=== PATIENT | female | born 2000 | race Caucasian/White ===

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

== ENCOUNTER 2018-02-21 02:58 | Emergency (ER) | payer MEDICAID ==
[2018-02-21] MEDS ORDERED: SODIUM CHLORIDE 0.9% 1,000 ML IV STA (03:09)
--- NOTE | 2018-02-21 03:09 | ED ---
General Adult HPI - General Stated complaint: Poss Seizure Time Seen by Provider: 02/21/18 03:08 - History of Present Illness Initial comments: Patient is a 17-year-old female who presents to the emergency department today for evaluation of possible seizure versus syncope. Patient reports she was in her usual state of health throughout the day, this evening she began to feel nauseated walked into her bathroom. She reports she doesn't recall happened after that. Mother reports that she heard the patient fall to the ground, she went in the bathroom check on her and found her laying on her back she dropped her glass of water and was minimally responsive. 911 was called. EMS reports that upon their arrival patient seems somewhat confused she did not have any tongue biting or loss of bowel or bladder continence. She has no history of seizure. EMS did report that initially the thought the patient's eyes were deviating to one direction however that resolved. Patient came around and was awake alert and oriented though she doesn't recall the event. Patient denies any cardiac history and history of syncope in the past she denies any history of seizures. She denies any drug use. - Related Data Home Medications Medication Instructions Recorded Confirmed Ergocalciferol [Vitamin D2] 50,000 unit PO TH 06/20/17 06/20/17 Metoprolol Succinate (ER) [Toprol 25 mg PO DAILY 06/20/17 06/20/17 Xl] Allergies Allergy/AdvReac Type Severity Reaction Status Date / Time No Known Allergies Allergy Verified 06/20/17 19:22 Review of Systems ROS Statement: Those systems with pertinent positive or pertinent negative responses have been documented in the HPI. ROS Other: All systems not noted in ROS Statement are negative. Past Medical History Past Medical History: Hypertension History of Any Multi-Drug Resistant Organisms: None Reported Additional Past Surgical History / Comment(s): eye surgery Past Psychological History: No Psychological Hx Reported Smoking Status: Never smoker Past Alcohol Use History: None Reported Past Drug Use History: None Reported General Exam - General Exam Comments Initial Comments: Physical Exam GENERAL: Patient is well-developed and well-nourished. Patient is nontoxic and well- hydrated and is in no distress. HENT: Normocephalic, Atraumatic. TMs normal bilaterally EYES: PERRL, EOMI PULMONARY: Unlabored respirations. No audible rales rhonchi or wheezing was noted. CARDIOVASCULAR: There is a regular rate and rhythm without any murmurs gallops or rubs. ABDOMEN: Soft and nontender with normal bowel sounds. SKIN: Skin is clear with no lesions or rashes and otherwise unremarkable. : Deferred NEUROLOGIC: Patient is alert and oriented x3. Moving all extremities spontaneously Cranial nerves II through XII grossly intact MUSCULOSKELETAL: Normal extremities with adequate strength and full range of motion. No lower extremity swelling or edema. No calf tenderness. PSYCHIATRIC: Normal psychiatric evaluation. Limitations: no limitations Course Vital Signs 02/21/18 02/21/18 03:39 06:01 Temperature 97 F L 99 F Pulse Rate 66 72 Respiratory 18 20 Rate Blood Pressure 135/87 124/81 O2 Sat by Pulse 100 98 Oximetry EKG Findings - EKG Comments: EKG Findings:: EKG obtained at 3:20 AM, rate is 72 rhythm is sinus with sinus arrhythmia, normal axis, normal intervals, no acute ST elevations or depressions or evidence of acute ischemia or infarction. Medical Decision Making - Medical Decision Making Patient was seen and evaluated upon arrival, patient with an apparent syncopal episode unwitnessed, no history of Labs and imaging were ordered EKG is nonischemic with no arrhythmia Labs were reviewed, lactic acid is negative which is more suggestive of this being syncopal rather than a seizure. D-dimer is elevated, considering that presence of syncope with an elevated d-dimer CT of the chest was ordered Patient is agreeable this CT with no acute findings Patient reevaluated after IV fluids. Patient reports she's feeling much better. CT results were discussed. I advised the patient I suspect she had a syncopal episode likely related to orthostatic hypotension return parameters were discussed, all questions pertaining to care were answered I advised the patient that if she has any chest pain or shortness of breath with exertion or develops any new or concerning symptoms or recurrent syncopal she should return to the ER for reevaluation otherwise follow up with her primary care physician. Patient is agreeable with this plan. All questions pertaining care were answered return parameters were discussed patient was discharged home in stable condition. - Lab Data Result diagrams: 02/21/18 03:33 02/21/18 03:33 Lab Results 02/21/18 02/21/18 02/21/18 Range/Units 03:33 03:33 03:33 WBC 7.9 (4.0-11.0) k/uL RBC 4.74 (3.80-5.40) m/uL Hgb 13.8 (11.4-16.0) gm/dL Hct 40.9 (34.0-46.0) % MCV 86.4 (80.0-100.0) fL MCH 29.2 (25.0-35.0) pg MCHC 33.7 (31.0-37.0) g/dL RDW 11.7 (11.5-15.5) % Plt Count 286 (150-450) k/uL Neutrophils % 63 % Lymphocytes % 27 % Monocytes % 6 % Eosinophils % 2 % Basophils % 1 % Neutrophils # 5.0 (1.3-7.7) k/uL Lymphocytes # 2.1 (1.0-4.8) k/uL Monocytes # 0.4 (0-1.0) k/uL Eosinophils # 0.2 (0-0.7) k/uL Basophils # 0.0 (0-0.2) k/uL D-Dimer (<0.60) mg/L FEU Sodium 140 (137-145) mmol/L Potassium 3.6 (3.5-5.1) mmol/L Chloride 106 (98-107) mmol/L Carbon Dioxide 24 (22-30) mmol/L Anion Gap 10 mmol/L BUN 13 (7-17) mg/dL Creatinine 0.67 (0.52-1.04) mg/dL Est GFR (CKD-EPI)AfAm >90 (>60 ml/min/1.73 sqM) Est GFR (CKD-EPI)NonAf >90 (>60 ml/min/1.73 sqM) Glucose 103 H (74-99) mg/dL POC Glucose (mg/dL) (75-99) mg/dL POC Glu Machining And Assembly Supervisor ID Plasma Lactic Acid Werner 1.0 (0.7-2.0) mmol/L Calcium 9.2 (8.4-10.2) mg/dL Total Bilirubin 0.3 (0.2-1.3) mg/dL AST 15 (14-36) U/L ALT 36 (9-52) U/L Alkaline Phosphatase 57 (38-126) U/L Total Protein 7.0 (6.3-8.2) g/dL Albumin 4.2 (3.5-5.0) g/dL Urine Color Urine Appearance (Clear) Urine pH (5.0-8.0) Ur Specific [place] (1.001-1.035) Urine Protein (Negative) Urine Glucose (UA) (Negative) Urine Ketones (Negative) Urine Blood (Negative) Urine Nitrite (Negative) Urine Bilirubin (Negative) Urine Urobilinogen (<2.0) mg/dL Ur Leukocyte Esterase (Negative) Urine RBC (0-5) /hpf Urine WBC (0-5) /hpf Ur Squamous Epith Cells (0-4) /hpf Amorphous Sediment (None) /hpf Urine Mucus (None) /hpf Urine Opiates Screen (NotDetected) Ur Oxycodone Screen (NotDetected) Urine Methadone Screen (NotDetected) Ur Propoxyphene Screen (NotDetected) Ur Barbiturates Screen (NotDetected) U Tricyclic Antidepress (NotDetected) Ur Phencyclidine Scrn (NotDetected) Ur Amphetamines Screen (NotDetected) U Methamphetamines Scrn (NotDetected) U Benzodiazepines Scrn (NotDetected) Urine Cocaine Screen (NotDetected) U Marijuana (THC) Screen (NotDetected) Serum Alcohol <10 mg/dL 02/21/18 02/21/18 02/21/18 Range/Units 03:33 03:44 04:20 WBC (4.0-11.0) k/uL RBC (3.80-5.40) m/uL Hgb (11.4-16.0) gm/dL Hct (34.0-46.0) % MCV (80.0-100.0) fL MCH (25.0-35.0) pg MCHC (31.0-37.0) g/dL RDW (11.5-15.5) % Plt Count (150-450) k/uL Neutrophils % % Lymphocytes % % Monocytes % % Eosinophils % % Basophils % % Neutrophils # (1.3-7.7) k/uL Lymphocytes # (1.0-4.8) k/uL Monocytes # (0-1.0) k/uL Eosinophils # (0-0.7) k/uL Basophils # (0-0.2) k/uL D-Dimer 0.71 H (<0.60) mg/L FEU Sodium (137-145) mmol/L Potassium (3.5-5.1) mmol/L Chloride (98-107) mmol/L Carbon Dioxide (22-30) mmol/L Anion Gap mmol/L BUN (7-17) mg/dL Creatinine (0.52-1.04) mg/dL Est GFR (CKD-EPI)AfAm (>60 ml/min/1.73 sqM) Est GFR (CKD-EPI)NonAf (>60 ml/min/1.73 sqM) Glucose (74-99) mg/dL POC Glucose (mg/dL) 98 (75-99) mg/dL POC Glu Machining And Assembly Supervisor ID Sebastián Robles Plasma Lactic Acid Werner (0.7-2.0) mmol/L Calcium (8.4-10.2) mg/dL Total Bilirubin (0.2-1.3) mg/dL AST (14-36) U/L ALT (9-52) U/L Alkaline Phosphatase (38-126) U/L Total Protein (6.3-8.2) g/dL Albumin (3.5-5.0) g/dL Urine Color Light Yellow Urine Appearance Clear (Clear) Urine pH 7.0 (5.0-8.0) Ur Specific [place] 1.009 (1.001-1.035) Urine Protein Negative (Negative) Urine Glucose (UA) Negative (Negative) Urine Ketones Negative (Negative) Urine Blood Negative (Negative) Urine Nitrite Negative (Negative) Urine Bilirubin Negative (Negative) Urine Urobilinogen <2.0 (<2.0) mg/dL Ur Leukocyte Esterase Trace H (Negative) Urine RBC 1 (0-5) /hpf Urine WBC 1 (0-5) /hpf Ur Squamous Epith Cells 1 (0-4) /hpf Amorphous Sediment Rare H (None) /hpf Urine Mucus Occasional H (None) /hpf Urine Opiates Screen Not Detected (NotDetected) Ur Oxycodone Screen Not Detected (NotDetected) Urine Methadone Screen Not Detected (NotDetected) Ur Propoxyphene Screen Not Detected (NotDetected) Ur Barbiturates Screen Not Detected (NotDetected) U Tricyclic Antidepress Not Detected (NotDetected) Ur Phencyclidine Scrn Not Detected (NotDetected) Ur Amphetamines Screen Not Detected (NotDetected) U Methamphetamines Scrn Not Detected (NotDetected) U Benzodiazepines Scrn Not Detected (NotDetected) Urine Cocaine Screen Not Detected (NotDetected) U Marijuana (THC) Screen Not Detected (NotDetected) Serum Alcohol mg/dL Disposition Clinical Impression: Syncope Disposition: HOME SELF-CARE Condition: Good Instructions: Syncope (DC) Is patient prescribed a controlled substance at d/c from ED?: No Referrals: Ely Sheridan MD [Primary Care Provider] - 1-2 days
[2018-02-21 03:44] LABS: Basophils % (A) 1 %; Eosinophils # (A) 0.2 k/uL (0-0.7); Eosinophils % (A) 2 %; HCT 40.9 % (34.0-46.0); HGB 13.8 gm/dL (11.4-16.0); Lymphocytes # (A) 2.1 k/uL (1.0-4.8); Lymphocytes % (A) 27 %; MCH 29.2 pg (25.0-35.0); MCHC 33.7 g/dL (31.0-37.0); MCV 86.4 fL (80.0-100.0); Mean Platelet Volume 7.4; Monocytes # (A) 0.4 k/uL (0-1.0); Monocytes % (A) 6 %; Neutrophils % (A) 63 %; Platelet Count 286 k/uL (150-450); RBC 4.74 m/uL (3.80-5.40); RDW 11.7 % (11.5-15.5); WBC 7.9 k/uL (4.0-11.0)
[2018-02-21 03:56] LABS: Glucose,Whole Blood 98 mg/dL (75-99)
[2018-02-21 03:57] LABS: ALT 36 U/L (9-52); AST 15 U/L (14-36); Albumin 4.2 g/dL (3.5-5.0); Alcohol <10 mg/dL; Alkaline Phosphatase 57 U/L (38-126); Anion Gap 10 mmol/L; Blood Urea Nitrogen 13 mg/dL (7-17); Calcium 9.2 mg/dL (8.4-10.2); Carbon Dioxide 24 mmol/L (22-30); Chloride 106 mmol/L (98-107); Glucose 103 mg/dL (74-99); Potassium 3.6 mmol/L (3.5-5.1); Sodium 140 mmol/L (137-145); Total Bilirubin 0.3 mg/dL (0.2-1.3)
--- NOTE | 2018-02-21 04:05 | CT ---
EXAMINATION TYPE: CT brain wo con DATE OF EXAM: 02/21/2018 COMPARISON: Possible seizure HISTORY: possible seizure CT DLP: 1099.4 mGycm. Automated Exposure Control for Dose Reduction was Utilized. TECHNIQUE: CT scan of the head is performed without contrast. FINDINGS: Ventricles of normal size. There is no mass effect nor midline shift. There is no sign of i ntracranial hemorrhage. There is no evidence of cerebral edema. Calvarium appears intact. IMPRESSION: Negative CT scan of the brain.
[2018-02-21 04:39] LABS: Amorphous Sediment,Urine Rare /hpf; Appearance,Urine Clear (Clear); Bilirubin,Urine Negative (Negative); Blood,Urine Negative (Negative); Color,Urine Light Yellow; Glucose,Urine (UA) Negative (Negative); Ketones,Urine Negative (Negative); Leukocyte Esterase,Urine Trace (Negative); Mucus,Urine Occasional /hpf; Nitrite,Urine Negative (Negative); Protein,Urine Negative (Negative); RBC,Urine 1 /hpf (0-5); Specific Gravity,Urine 1.009 (1.001-1.035); Squamous Epithelial Cell,Urine 1 /hpf (0-4); Urobilinogen,Urine <2.0 mg/dL (<2.0); WBC,Urine 1 /hpf (0-5)
[2018-02-21 04:44] LABS: Amphetamine Screen,Urine Not Detected (NotDetected); Barbiturate Screen,Urine Not Detected (NotDetected); Benzodiazepines Screen,Urine Not Detected (NotDetected); Cocaine Screen,Urine Not Detected (NotDetected); Methadone Screen, Urine Not Detected (NotDetected); Opiate Screen,Urine Not Detected (NotDetected); Oxycodone Screen, Urine Not Detected (NotDetected); Phencyclidine Screen,Urine Not Detected (NotDetected); Tricyclic Antidepressant,Urine Not Detected (NotDetected); Urn Cannabinoid Scrn Not Detected (NotDetected)
--- NOTE | 2018-02-21 04:57 | CT ---
EXAMINATION TYPE: CT chest angio for PE DATE OF EXAM: 02/21/2018 COMPARISON: None HISTORY: elevated d-dimer CT DLP: 295.9 mGycm Automated exposure control for dose reduction was used. CONTRAST: CT Chest for pulmonary embolism performed with with IV Contrast, patient injected with 60mL mL of Iso dyllan 370. There are 3-D post processed images. FINDINGS: There is normal contrast opacification of the pulmonary arteries. There are no filling defects. There is no mediastinal adenopathy. Thoracic aorta appears normal. There is no evidence of aneurysm o r dissection. There are no hilar masses. Heart size is normal. There is no pericardial effusion. There is no pleural effusion. Upper abdominal soft tissues are unremarkable. The bony thorax is intact. The ribs appear intact. The lungs are clear of infiltrate. There is no kunal dence of a pulmonary mass. IMPRESSION: Negative CT scan of the chest. No evidence of pulmonary embolism.
[2018-02-21 06:02] VITALS: BP 124/81; PULSE 72; RESP 20; TEMP 99
== END 2018-02-21 06:02 | disposition home or self-care (01) ==
LOC: EC 02:58
DX: R55 Syncope and collapse (principal); I10 Essential (primary) hypertension; Z79.899 Other long term (current) drug therapy
CPT/HCPCS: 36415; 93005; 85379; 80053; 83605; 85025; 81001; 80306; 80320; 70450; 71275; 99285; 96360; 96361; Q9967

== ENCOUNTER 2018-04-22 19:12 | Observation (INO) | payer MEDICAID ==
[2018-04-22 19:47] LABS: Glucose,Whole Blood 108 mg/dL (75-99)
[2018-04-22 19:55] LABS: Appearance,Urine Clear (Clear); Bilirubin,Urine Negative (Negative); Blood,Urine Negative (Negative); Color,Urine Colorless; Glucose,Urine (UA) Negative (Negative); Ketones,Urine Negative (Negative); Leukocyte Esterase,Urine Negative (Negative); Nitrite,Urine Negative (Negative); PH, Urine 6.5 (5.0-8.0); Protein,Urine Negative (Negative); Specific Gravity,Urine 1.001 (1.001-1.035); Urobilinogen,Urine <2.0 mg/dL (<2.0)
--- NOTE | 2018-04-22 20:03 | ED ---
General Adult HPI - General Chief complaint: Syncope Stated complaint: Syncope Time Seen by Provider: 04/22/18 19:45 Source: family Mode of arrival: ambulatory Limitations: no limitations - History of Present Illness Initial comments: Dictation was produced using [employer] dictation software. please excuse any grammatical, word or spelling errors. Chief Complaint: 17-year-old female presents with 2 episodes of syncope. History of Present Illness: Patient is 17-year-old female presents with 2 episodes of syncope. Patient had similar episode back in January where she was evaluated discharge. Patient has known episodes of syncope by primary care physician. Patient does not have any history of seizures. Patient had episode of syncope where she was found to be on the ground and bathroom. She was brought to the emergency Department were while in triage she had another episode. She is allegedly unconscious for about 5 minutes and immediately after returns to normal mentation. Patient states that she does feel the onset of her syncope sometimes prior to passing out. His feels well. Patient not sexually active. She does not believe she is . Patient denies any heavy menstrual bleeding. The ROS documented in this emergency department record has been reviewed and confirmed by me. Those systems with pertinent positive or negative responses have been documented in the HPI. All other systems are other negative and/or noncontributory. PHYSICAL EXAM: General Impression: Alert and oriented x3, not in acute distress HEENT: Normocephalic atraumatic, extra-ocular movements intact, pupils equal and reactive to light bilaterally, mucous membranes moist, no lateral tongue avulsions Cardiovascular: Heart regular rate and rhythm, S1&S2 audible, no murmurs, rubs or gallops Chest: Lungs clear to auscultation bilaterally, no rhonchi, no wheeze, no rales Abdomen: Bowel sounds present, abdomen soft, non-tender, non-distended, no organomegaly Musculoskeletal: Pulses present and equal in all extremities, no peripheral edema Motor: Power 5/5 bilaterally, no focal deficits noted Neurological: CN II-XII grossly intact, no focal motor or sensory deficits noted Skin: Intact with no visualized rashes Psych: Normal affect and mood ED course: 17 yo female presents with syncope. Patient clinical presentation not consistent with generalized seizure. Vital signs upon arrival are within acceptable limits. Patient is mentating appropriately upon initial examination. Patient had multiple syncopal episodes today. Clinical presentation concerning for acute dysrhythmia versus vasovagal syncope given the patient multiple episodes today.Laboratory evaluation obtained. CBC, metabolic panel is unremarkable. Urinalysis is negative. Patient still continues to feel ill. At this point I feel patient would benefit from admission to observation for cardiac monitoring, echocardiogram and cardiology consultation. Patient stable medical condition at this time. Serial EKGs were obtained showing no acute processes. EKG interpretation: Ventricular rate 87, normal sinus rhythm, FL interval 186, QS 80, QTc 442. No FL prolongation, no QTC prolongation, no ST or T-wave changes noted. Overall, this EKG is unremarkable - Related Data Home Medications Medication Instructions Recorded Confirmed Metoprolol Succinate (ER) [Toprol 25 mg PO DAILY 06/20/17 04/22/18 Xl] Nor-Babar 1 tab PO DAILY 04/22/18 04/22/18 Vitamin C/Biotin [Hair, Skin and 1 tab PO DAILY 04/22/18 04/22/18 Nails] Allergies Allergy/AdvReac Type Severity Reaction Status Date / Time No Known Allergies Allergy Verified 04/22/18 19:57 Review of Systems ROS Statement: Those systems with pertinent positive or pertinent negative responses have been documented in the HPI. ROS Other: All systems not noted in ROS Statement are negative. Past Medical History Past Medical History: Hypertension, Syncope History of Any Multi-Drug Resistant Organisms: None Reported Additional Past Surgical History / Comment(s): eye surgery Past Psychological History: No Psychological Hx Reported Smoking Status: Never smoker Past Alcohol Use History: None Reported Past Drug Use History: None Reported General Exam Limitations: no limitations Course Vital Signs 04/22/18 04/22/18 04/22/18 19:33 19:37 20:00 Temperature 98.7 F Pulse Rate 74 72 72 Respiratory 16 17 12 Rate Blood Pressure 123/68 123/68 130/84 O2 Sat by Pulse 97 98 98 Oximetry 04/22/18 20:30 Temperature Pulse Rate 67 Respiratory 15 Rate Blood Pressure 129/79 O2 Sat by Pulse 98 Oximetry Medical Decision Making - Lab Data Result diagrams: 04/22/18 19:35 04/22/18 19:35 Lab Results 04/22/18 04/22/18 04/22/18 Range/Units 19:35 19:35 19:35 WBC 10.1 (4.0-11.0) k/uL RBC 4.83 (3.80-5.40) m/uL Hgb 13.7 (11.4-16.0) gm/dL Hct 41.7 (34.0-46.0) % MCV 86.3 (80.0-100.0) fL MCH 28.4 (25.0-35.0) pg MCHC 32.9 (31.0-37.0) g/dL RDW 12.0 (11.5-15.5) % Plt Count 327 (150-450) k/uL Neutrophils % 64 % Lymphocytes % 28 % Monocytes % 5 % Eosinophils % 2 % Basophils % 0 % Neutrophils # 6.5 (1.3-7.7) k/uL Lymphocytes # 2.8 (1.0-4.8) k/uL Monocytes # 0.5 (0-1.0) k/uL Eosinophils # 0.2 (0-0.7) k/uL Basophils # 0.0 (0-0.2) k/uL Sodium 141 (137-145) mmol/L Potassium 4.0 (3.5-5.1) mmol/L Chloride 105 (98-107) mmol/L Carbon Dioxide 24 (22-30) mmol/L Anion Gap 12 mmol/L BUN 12 (7-17) mg/dL Creatinine 0.65 (0.52-1.04) mg/dL Est GFR (CKD-EPI)AfAm >90 (>60 ml/min/1.73 sqM) Est GFR (CKD-EPI)NonAf >90 (>60 ml/min/1.73 sqM) Glucose 110 H (74-99) mg/dL POC Glucose (mg/dL) 108 H (75-99) mg/dL POC Glu Computer Systems Technician ID Mayra Cárdenas Calcium 10.4 H (8.4-10.2) mg/dL Magnesium 2.0 (1.6-2.3) mg/dL Urine Color Urine Appearance (Clear) Urine pH (5.0-8.0) Ur Specific [place] (1.001-1.035) Urine Protein (Negative) Urine Glucose (UA) (Negative) Urine Ketones (Negative) Urine Blood (Negative) Urine Nitrite (Negative) Urine Bilirubin (Negative) Urine Urobilinogen (<2.0) mg/dL Ur Leukocyte Esterase (Negative) Urine HCG, Qual (Not Detectd) 04/22/18 04/22/18 Range/Units 19:40 19:40 WBC (4.0-11.0) k/uL RBC (3.80-5.40) m/uL Hgb (11.4-16.0) gm/dL Hct (34.0-46.0) % MCV (80.0-100.0) fL MCH (25.0-35.0) pg MCHC (31.0-37.0) g/dL RDW (11.5-15.5) % Plt Count (150-450) k/uL Neutrophils % % Lymphocytes % % Monocytes % % Eosinophils % % Basophils % % Neutrophils # (1.3-7.7) k/uL Lymphocytes # (1.0-4.8) k/uL Monocytes # (0-1.0) k/uL Eosinophils # (0-0.7) k/uL Basophils # (0-0.2) k/uL Sodium (137-145) mmol/L Potassium (3.5-5.1) mmol/L Chloride (98-107) mmol/L Carbon Dioxide (22-30) mmol/L Anion Gap mmol/L BUN (7-17) mg/dL Creatinine (0.52-1.04) mg/dL Est GFR (CKD-EPI)AfAm (>60 ml/min/1.73 sqM) Est GFR (CKD-EPI)NonAf (>60 ml/min/1.73 sqM) Glucose (74-99) mg/dL POC Glucose (mg/dL) (75-99) mg/dL POC Glu Computer Systems Technician ID Calcium (8.4-10.2) mg/dL Magnesium (1.6-2.3) mg/dL Urine Color Colorless Urine Appearance Clear (Clear) Urine pH 6.5 (5.0-8.0) Ur Specific [place] 1.001 (1.001-1.035) Urine Protein Negative (Negative) Urine Glucose (UA) Negative (Negative) Urine Ketones Negative (Negative) Urine Blood Negative (Negative) Urine Nitrite Negative (Negative) Urine Bilirubin Negative (Negative) Urine Urobilinogen <2.0 (<2.0) mg/dL Ur Leukocyte Esterase Negative (Negative) Urine HCG, Qual Not Detected (Not Detectd) Disposition Clinical Impression: Syncope Disposition: ADMITTED IP TO THIS [facility] Condition: Good Referrals: Ely Sheridan MD [Primary Care Provider] - 1-2 days Decision Time: 21:09
--- NOTE | 2018-04-22 20:41 | XR ---
EXAMINATION TYPE: XR chest 2V DATE OF EXAM: 04/22/2018 COMPARISON: Chest x-ray June 20, 2017. CTA chest February 21, 2018. HISTORY: Chest pain. History of hypertension. TECHNIQUE: Frontal and lateral views of the chest are obtained. FINDINGS: There is no focal air space opacity, pleural effusion, or pneumothorax seen. The cardiac silhouette size is within normal limits. The osseous structures are intact. IMPRESSION: No acute cardiopulmonary process. No significant change from prior studies.
[2018-04-22 20:44] LABS: Basophils % (A) 0 %; Eosinophils # (A) 0.2 k/uL (0-0.7); Eosinophils % (A) 2 %; HCT 41.7 % (34.0-46.0); HGB 13.7 gm/dL (11.4-16.0); Lymphocytes # (A) 2.8 k/uL (1.0-4.8); Lymphocytes % (A) 28 %; MCH 28.4 pg (25.0-35.0); MCHC 32.9 g/dL (31.0-37.0); MCV 86.3 fL (80.0-100.0); Mean Platelet Volume 7.9; Monocytes # (A) 0.5 k/uL (0-1.0); Monocytes % (A) 5 %; Neutrophils # (A) 6.5 k/uL (1.3-7.7); Neutrophils % (A) 64 %; Platelet Count 327 k/uL (150-450); RBC 4.83 m/uL (3.80-5.40); WBC 10.1 k/uL (4.0-11.0)
[2018-04-22 20:54] LABS: Anion Gap 12 mmol/L; Blood Urea Nitrogen 12 mg/dL (7-17); Calcium 10.4 mg/dL (8.4-10.2); Carbon Dioxide 24 mmol/L (22-30); Chloride 105 mmol/L (98-107); Glucose 110 mg/dL (74-99); Sodium 141 mmol/L (137-145)
[2018-04-22] MEDS ORDERED: NALOXONE 0.4 MG/ML 1 ML VIAL IV PRN (21:05)
[2018-04-22] MEDS: SODIUM CHLORIDE 0.9% 1,000 ML IV SCH ×2 (21:38→23:50)
[2018-04-22 22:51] VITALS: BMI 25.9
--- NOTE | 2018-04-22 23:02 | P.HPIM ---
History of Present Illness H&P Date: 04/22/18 Chief Complaint: syncope 17 year old female with history of hypertension of 1 year, no workup done to r/ o secondary causes of hypertension , currently on metoprolol for over 1 year now. she has started OCP 4 months ago, her first episode of Syncope happened 1 month later, otherwise she is tolerating the pill . patient presented today , due to feeling ill and sick, she cant describe what exactly she felt, but she felt as if she will pass out like last time in early february when she passed out in the bathroom and her mom heard a thud, and she was unresponsive for which EMS brought her to the hospital , she was checked in the ED, and discharged in stable condition. She later followed up with her PCP. so today, she presented as she was worried the syncope will happen again, she had no other episodes since February. then later while in Triage, she passed out , mother and nursing staff noticed no seizure like activity, there is no bladder or bowel incontinence, no tongue biting no frothing from the mouth. patient was cold and clammy, her extremities turned purple and she was unresponsive for possibly 5 minutes then she regained consciousness on her own with no post ictal confusion and feeling completely normal within short time. patient cant describe what happens to her, and does not remember anything. otherwise, she denies any fever, chills, headache, nausea or vomiting, no abd pain, no changes in bowel habits, no rash, no injuries. she denies any changes in her daily routines, PO intake, or activity level. she does not have any idea why she is having such events. she denies any family history of sudden cardiac , except in great grandfather who dies in old age from cardiac condition. she was diagnosed with HYpertension over 1 year ago, no workup done that she can recall, and was started on metoprolol. her thyroid function has been checked with her PCP and reports to be normal. she had heart echo when she was younger due to heart murmur , but they recall that everything turned to be normal. currently she is pleasantly laying comfortable in bed, with her mom at bedside. she denies any heavy menestruation , denies taking any herbs or natural products , except for nail/hair vitamines. initial workp in the ED , unremarkable. she had a CTA of the chest back in february which turned out to be unremarkable . Brain CT was negative for any acute abnormalities (from February 2018). Review of Systems Pertinent positives as noted in HPI. All other systems were reviewed and are negative Past Medical History Past Medical History: Hypertension, Syncope History of Any Multi-Drug Resistant Organisms: None Reported Additional Past Surgical History / Comment(s): eye surgery Past Psychological History: No Psychological Hx Reported Smoking Status: Never smoker Past Alcohol Use History: None Reported Past Drug Use History: None Reported Medications and Allergies Home Medications Medication Instructions Recorded Confirmed Type Metoprolol Succinate (ER) [Toprol 25 mg PO DAILY 06/20/17 04/22/18 History Xl] Nor-Babar 1 tab PO DAILY 04/22/18 04/22/18 History Vitamin C/Biotin [Hair, Skin and 1 tab PO DAILY 04/22/18 04/22/18 History Nails] Allergies Allergy/AdvReac Type Severity Reaction Status Date / Time No Known Allergies Allergy Verified 04/22/18 19:57 Physical Exam Vitals: Vital Signs Temp Pulse Resp BP Pulse Ox 04/22/18 20:30 67 15 129/79 98 04/22/18 20:00 72 12 130/84 98 04/22/18 19:37 72 17 123/68 98 04/22/18 19:33 98.7 F 74 16 123/68 97 Intake and Output 04/22/18 04/22/18 04/22/18 06:59 14:59 22:59 Other: Weight 72.575 kg Constitutional: No acute distress, conversant, pleasant Eyes: Anicteric sclerae, moist conjunctiva, no lid-lag Pupils equal round reactive to light ENMT: NC/AT Oropharynx clear, no erythema, exudates Neck: Supple, FROM, no masses, or JVD No carotid bruits No thyromegaly Lungs: Clear to auscultation Clear to percussion Normal respiratory effort, no accessory muscle use Cardiovascular: Heart regular in rate and rhythm, Systolic murmur at P2 disappears with deep breathing , no gallops, or rubs No peripheral edema Abdominal: Soft Nontender, no guarding, rebound or rigidity Abdomen moving with respiration Normoactive bowel sounds No hepatomegaly, No splenomegaly No palpable mass No abdominal wall hernia noted Skin: Normal temperature, tone, texture, turgor No induration No subcutaneous nodules No rash, lesions No ulcers Extremities: No digital cyanosis No clubbing Pedal pulses intact and symmetrical Radial pulses intact and symmetrical No calf tenderness Psychiatric: Alert and oriented to person, place and time Appropriate affect fair judgment Neuro Muscles Strength 5/5 in all 4 extremities Sensation to light touch grossly present throughout Cranial nerves II-XII grossly intact No focal sensory deficits Lymphatics: no palpable cervical or supraclavicular , or inguinal lymph nodes Results CBC & Chem 7: 04/22/18 19:35 04/22/18 19:35 Labs: Abnormal Lab Results - Last 24 Hours (Table) 04/22/18 04/22/18 Range/Units 19:35 19:35 Glucose 110 H (74-99) mg/dL POC Glucose (mg/dL) 108 H (75-99) mg/dL Calcium 10.4 H (8.4-10.2) mg/dL Assessment and Plan Assessment: 17-year-old female with history of hypertension on metoprolol admitted under observation with anticipated length of stay less than 48 hours due to syncopal episode that was witnessed in the ED no seizure-like activity. Patient admitted for further workup and evaluation by cardiology. Patient probably would benefit from echocardiogram and EEG, will monitor cardiac enzymes. Recheck electrolytes in morning. If nothing shows up patient will probably benefit from outpatient cardiology follow-up and evaluation with some cardiac event monitor. I also suggested patient consider workup for secondary causes of hypertension as she was diagnosed younger than age of 28. I also advised the patient to avoid driving until a final diagnosis and plan as reached and to consider carpooling or getting rides to her destinations to avoid catastrophic accidents that can result from passing out behind the wheel Plan: syncope and colllapse hypertension, on metoprolol heart murmur fall precautions cardiac monitoring , follow up cardiac enzymes cardiology consultation check ECHO, check EEG follow up morning labs Mild hypercalcemia recheck in AM continue with gentle hydration DVT PPX, heparin sc tid Preformed a thorough record review from recent hospitalization in the ED back in february 2018, with similar episode of syncpe, CT brain and CTA chest both unremarkable Surrogate decision-maker: patient mother CODE STATUS:full code Discussed with: Patient, ER, RN Anticipated discharge: <[address]: home A total of 60 minutes was spent on the care of this complex patient more than 50 % of the time was spent in counseling and care coordination.
[2018-04-22 23:15] LABS: Creatine Kinase 109 U/L (30-135)
[2018-04-22 23:29] LABS: Creatine Kinase MB 0.8 ng/mL (0.0-2.4); Troponin I <0.012 ng/mL (0.000-0.034)
[2018-04-22] MEDS: HEPARIN SODIUM,PORCINE 5,000 UNIT/ML 1 ML VIAL SQ SCH (23:49)
[2018-04-23 04:10] LABS: Creatine Kinase 76 U/L (30-135)
[2018-04-23 04:23] LABS: Creatine Kinase MB <0.2 ng/mL (0.0-2.4); Troponin I <0.012 ng/mL (0.000-0.034)
[2018-04-23 08:00] LABS: Basophils % (A) 0 %; Eosinophils # (A) 0.1 k/uL (0-0.7); Eosinophils % (A) 1 %; HCT 38.1 % (34.0-46.0); HGB 12.6 gm/dL (11.4-16.0); Lymphocytes # (A) 1.5 k/uL (1.0-4.8); Lymphocytes % (A) 18 %; MCH 28.9 pg (25.0-35.0); MCHC 32.9 g/dL (31.0-37.0); MCV 87.7 fL (80.0-100.0); Mean Platelet Volume 7.5; Monocytes # (A) 0.4 k/uL (0-1.0); Monocytes % (A) 4 %; Neutrophils # (A) 6.4 k/uL (1.3-7.7); Neutrophils % (A) 76 %; Platelet Count 247 k/uL (150-450); RBC 4.35 m/uL (3.80-5.40); RDW 12.1 % (11.5-15.5); WBC 8.5 k/uL (4.0-11.0)
[2018-04-23 08:14] LABS: ALT 32 U/L (9-52); AST 18 U/L (14-36); Albumin 4.2 g/dL (3.5-5.0); Alkaline Phosphatase 45 U/L (38-126); Anion Gap 9 mmol/L; Blood Urea Nitrogen 11 mg/dL (7-17); Calcium 9.7 mg/dL (8.4-10.2); Carbon Dioxide 25 mmol/L (22-30); Chloride 108 mmol/L (98-107); Glucose 93 mg/dL (74-99); Magnesium 1.9 mg/dL (1.6-2.3); Potassium 4.6 mmol/L (3.5-5.1); Sodium 142 mmol/L (137-145); Total Bilirubin 0.4 mg/dL (0.2-1.3); Total Protein 6.9 g/dL (6.3-8.2)
[2018-04-23 08:25] LABS: Creatine Kinase 67 U/L (30-135)
[2018-04-23 08:38] LABS: Creatine Kinase MB <0.2 ng/mL (0.0-2.4); Troponin I <0.012 ng/mL (0.000-0.034)
[2018-04-23] MEDS: HEPARIN SODIUM,PORCINE 5,000 UNIT/ML 1 ML VIAL SQ SCH (08:41)
--- NOTE | 2018-04-23 08:50 | CONS ---
CONSULTATION Ms. Reyes is a 17-year-old female with no prior documented history of cardiac disease who presented with syncopal episode. Yesterday while at home, she felt warm, dizzy and nauseated. She came into the emergency room and in the emergency room she had an episode of syncope, although no documentation of tachycardia or bradycardia were made. She came to. She was aware of her surroundings. She had no tonic clonic seizure. No loss of bladder control. She had no other symptoms. She had similar syncopal episode that occurred in February, but at that time she was in bed and got out to go to the bathroom and she had syncope. In between, she had no episodes. She is reasonably active physically. Denies any symptoms of palpitation. She denies any dizziness on a regular basis. She has no chest pain. No significant dyspnea on exertion. No PND, orthopnea, or peripheral edema. She was diagnosed with hypertension about a year ago and has been started on metoprolol tartrate 25 mg daily. REVIEW OF SYSTEMS: RESPIRATORY SYSTEM: No recent cough. No wheezing. No history of obstructive lung disease. GI SYSTEM: No recent GI bleed. No peptic ulcer disease. SYSTEM: No dysuria or hematuria. NERVOUS SYSTEM: No stroke or seizure. PHYSICAL EXAMINATION: A 17-year-old female, alert, oriented, in no apparent distress. Blood pressure 123/70 with the heart rate in the 80s. HEAD: Normocephalic. EYES: Sclerae anicteric. NECK: Good upstroke. No bruit. No jugular venous distention. LUNGS: Clear to auscultation. HEART: Regular rate and rhythm. S1, S2. No S3. With systolic ejection murmur 2/6 heart at the base. No diastolic murmur. No rub. ABDOMEN: Soft, nontender. Positive bowel sounds. No organomegaly. EXTREMITIES: No edema. Intact distal pulses. LAB DATA: Lab data revealed troponin less than 0.012. BUN and creatinine 11 and 0.66. Hemoglobin of 12.6, white blood cell of 8.5. EKG revealed a sinus mechanism, normal axis and intervals. No acute changes. Chest x-ray shows no acute infiltrate. IMPRESSION: 1. Syncopal episode of unclear etiology. Her symptoms were preceded by diaphoresis and nausea. It could be related to vasodepressor syncope. The setting is not consistent with orthostatic hypotension. 2. Prior history of hypertension. RECOMMENDATION: From the cardiac standpoint, I will stop the beta shaheen at this time. I will obtain an echocardiogram with Doppler. I have asked her mom to follow her blood pressure at home and see the trend and if needed, we can use another medication beside the beta shaheen. The patient may require a tilt-table test that can be done as an outpatient. She will be followed in the office following her discharge. I have discussed with the patient the importance of maintaining hydration status and avoiding rapid change in position. Thank you for this consult. We will follow with you. MMODL / IJN: [id number] /
[2018-04-23] MEDS ORDERED: METOPROLOL SUCCINATE (ER) 25 MG TAB.ER.24H PO SCH (09:00)
--- NOTE | 2018-04-23 11:47 | ECHOF ---
Referral Reason:syncope MEASUREMENTS -------- HEIGHT: 167.6 cm WEIGHT: 72.6 kg BP: 123/76 RVIDd: 2.9 cm (< 3.3) IVSd: 0.8 cm (0.6 - 1.1) LVIDd: 4.6 cm (3.9 - 5.3) LVPWd: 0.8 cm (0.6 - 1.1) IVSs: 1.5 cm LVIDs: 2.5 cm LVPWs: 1.8 cm LAESV Index (A-L): 21.51 ml/m Ao Diam: 2.5 cm (2.0 - 3.7) AV Cusp: 1.8 cm (1.5 - 2.6) LA Diam: 2.6 cm (2.7 - 3.8) MV EXCURSION: 15.184 mm (> 18.000) MV EF SLOPE: 177 mm/s (70 - 150) EPSS: 0.4 cm MV E Taco: 1.00 m/s MV DecT: 258 ms MV A Taco: 0.48 m/s MV E/A Ratio: 2.08 RAP: 5.00 mmHg RVSP: 13.70 mmHg FINDINGS -------- Sinus rhythm. This was a technically good study. The left ventricular size is normal. Left ventricular wall thickness is normal. Overall left vent ricular systolic function is normal with, an EF between 55 - 60 %. The right ventricle is normal in size. The left atrium is normal in size. The right atrium is normal in size. The aortic valve is trileaflet, and appears structurally normal. No aortic stenosis or regurgitation. The mitral valve is normal. There is trace mitral regurgitation. Trace tricuspid regurgitation present. There is no evidence of pulmonary hypertension. The right ventricular systolic pressure, as measured by Doppler, is 13.70mmHg. There is no pulmonic regurgitation present. The aortic root size is normal. Normal inferior vena cava with normal inspiratory collapse consistent with estimated right atrial pre ssure of 5 mmHg. There is no pericardial effusion. CONCLUSIONS -------- 1. Sinus rhythm. 2. This was a technically good study. 3. The left ventricular size is normal. 4. Left ventricular wall thickness is normal. 5. Overall left ventricular systolic function is normal with, an EF between 55 - 60 %. 6. The left atrium is normal in size. 7. The aortic valve is trileaflet, and appears structurally normal. No aortic stenosis or regurgitati on. 8. There is trace mitral regurgitation. 9. Trace tricuspid regurgitation present. 10. There is no evidence of pulmonary hypertension. 11. There is no pulmonic regurgitation present. 12. The aortic root size is normal. 13. Normal inferior vena cava with normal inspiratory collapse consistent with estimated right atrial pressure of 5 mmHg. 14. There is no pericardial effusion. [employer]ATE[employer]NERSHIP SPECIALIST: Charlotte Turner RDCS
[2018-04-23 12:31] VITALS: BP 123/72; PULSE 66; RESP 18; TEMP 97.8
--- NOTE | 2018-04-23 15:13 | P.DS ---
Providers Date of admission: 04/22/18 21:05 Expected date of discharge: 04/23/18 Attending physician: Koffi Camp MD Consults: 04/22/18 21:06 Consult Physician Routine Consulting Provider: Nelson Delgado Consult Reason/Comments: syncope Do you want consulting provider notified?: Yes [facility] [place] [facility] Course: Discharge Diagnosis: Syncopal episode Hypertension Hypercalcemia resolved Hospital Course: Patient is a 17-year-old female with a past medical history of hypertension and prior syncopal event presented to the ER with complaints of presyncope. Apparently while in triage she had a syncopal event. She states that she felt warm all over her knew she was going to pass out. She denied any visual changes. In the ER her vital signs were within normal limits. Orthostatic vital signs were negative. EKG and Lab work were unremarkable. She is admitted for observation. She was monitored on telemetry with no acute events noted. She was seen by cardiology and underwent an echocardiogram which was normal. Cardiology recommended coming off her beta shaheen and monitoring her blood pressures at home. Her mother were given extensive counseling on this. She had no additional syncopal episodes throughout her hospitalization when she was determined stable for discharge. I did discuss with her that she should not drive or operate a motor vehicle for approximately 6 months as per [place] law. I also talked with her about further workup including possible seen by a neurologist if these episodes continue to happen or continued with shaking, tongue biting, loss of bowel or bladder control, or confusion upon week. She has not had any of these symptoms to date. She'll follow up with Dr. Katlyn Denney in [address] Ospina in 2 weeks. All questions were answered. I also given her instructions to alert either Dr. Sheridan or Dr. Ospina if her systolic blood pressures greater than 175 or diastolic pressure greater than 110. Patient seen and examined at bedside. No chest pain, shortness breath, nausea, vomiting, or lightheadedness. No additional syncopal event. Vital signs reviewed and stable. General: non toxic, no distress, appears at stated age Derm: warm, dry Head: atraumatic, normocephalic, symmetric Eyes: EOMI, no lid lag, anicteric sclera Mouth: no lip lesion, mucus membranes moist Cardiovascular: S1S2 reg, no murmur, positive posterior tibial pulse bilateral, Lungs: CTA bilateral, no rhonchi, no rales , no accessory muscle use Abdominal: soft, nontender to palpation, no guarding, no appreciable organomegaly Ext: no gross muscle atrophy, no edema, no contractures Neuro: CN II-XI grossly intact, no focal neuro deficits Psych: Alert, oriented, appropriate affect A total of 25 minutes of time were spent preparing this complex discharge summary . Pertinent Studies: Echocardiogram-preserved ejection fraction 50-55% Patient Condition at Discharge: Good Plan - Discharge Summary Discharge Rx Participant: No New Discharge Prescriptions: Continue Vitamin C/Biotin [Hair, Skin and Nails] 1 tab PO DAILY Nor-Babar 1 tab PO DAILY Discontinued Metoprolol Succinate (ER) [Toprol Xl] 25 mg PO DAILY Discharge Medication List Nor-Babar 1 tab PO DAILY 04/22/18 [History] Vitamin C/Biotin [Hair, Skin and Nails] 1 tab PO DAILY 04/22/18 [History] Follow up Appointment(s)/Referral(s): Víctor Ospina MD [STAFF PHYSICIAN] - 05/07/18 10:15 am (Appointment made for SundayMay 07 @ 10:15am.) Ely Sheridan MD [Primary Care Provider] - 1-2 days Activity/Diet/Wound Care/Special Instructions: regular diet activity as tolerated No driving until cleared by Dr. Sheridan Take blood pressure once daily and make a log LEROY Blood pressure tracker plus. Call Dr. Sheridan or Dr. Ospina if top number greater than 175 or bottom number greater than 110 Discharge Disposition: HOME SELF-CARE
--- NOTE | 2018-04-24 11:47 | EEG ---
ELECTROENCEPHALOGRAM REPORT PROCEDURE DATE: 04/23/2018. ELECTROENCEPHALOGRAM (EEG) REPORT: TECHNIQUE: A routine 18 channel EEG was performed with video using the 10/20 international placement system. HISTORY: Syncope. The patient states that she frequently gets lightheaded during workouts and resting subsides the symptom. Yesterday, patient felt hot and lightheaded and requested to be taken to the emergency room. In the emergency room, patient passed out. The patient has been diagnosed with hypertension. STUDY DURATION: 24 minutes. FINDINGS: BACKGROUND: The background activity consisted of 9-10 hertz rhythmic waveforms symmetrically distributed over both posterior quadrants. ACTIVATION: HYPERVENTILATION: Induced mild physiological slowing. PHOTIC STIMULATION: Symmetric driving seen. SLEEP: None. ABNORMALITIES: None. Please note that 1 channel of this EEG was dedicated to EKG. It demonstrated a sinus rhythm. IMPRESSION: Normal EEG. No epileptiform activity was present. No seizures were recorded. MMODL / IJN: [id number] / MTDD
== END 2018-04-23 14:37 | disposition home or self-care (01) ==
LOC: EC 19:12 → 1SOBS 21:05
PROVIDERS: ADMIT Internal Medicine; ATTEND Internal Medicine
DX: R55 Syncope and collapse (principal); I10 Essential (primary) hypertension; E83.52 Hypercalcemia; R61 Generalized hyperhidrosis; R11.0 Nausea; R23.1 Pallor; R42 Dizziness and giddiness; Z79.899 Other long term (current) drug therapy; Z82.49 Family history of ischemic heart disease and other diseases of the circulatory system; Z79.3 Long term (current) use of hormonal contraceptives
CPT/HCPCS: 96360; 96361; 96372; 99285; 36415; 95816; 93005; 93306; 80053; 80048; 84443; 82550 ×2; 82553 ×2; 83735 ×2; 84484 ×2; 85025 ×2; 81003; 81025; 71046; G0378 ×2; J1644

== ENCOUNTER 2018-05-01 20:23 | Emergency (ER) | payer MEDICAID ==
[2018-05-01 20:48] VITALS: RESP 18; TEMP 99.3
--- NOTE | 2018-05-01 22:30 | ED ---
General Adult HPI - General Chief complaint: Syncope Stated complaint: Near syncope Time Seen by Provider: 05/01/18 21:19 Source: patient, family Mode of arrival: wheelchair Limitations: no limitations - History of Present Illness Initial comments: Mandy a 17-year-old female who presents to the ER for evaluation of near syncope. Patient has been having intermittent syncopal episodes since February of this year, she's been admitted the hospital for this she has had an echocardiogram and is scheduled to follow-up with cardiology next week in addition she's been referred to neurology she has had an EEG but has not had the results. Patient reports that today she had an episode of feeling lightheaded and like she was given a pass out she felt like her hands got cold and turned purple. Patient reports she did not pass out sure mainly on the couch with the sensation for about 30 minutes at which time her mom brought her to the ER for evaluation. Upon arrival in the ER patient reports that she is feeling much better. At this time she declines any further evaluation is comfortable with the plan for returning home to get a good night sleep. - Related Data Home Medications Medication Instructions Recorded Confirmed Norgestimate-Ethinyl Estradiol 1 tab PO DAILY@1200 05/01/18 05/01/18 [Ortho Tri-Cyclen 28 Tablet] Allergies Allergy/AdvReac Type Severity Reaction Status Date / Time No Known Allergies Allergy Verified 05/01/18 21:38 Review of Systems ROS Statement: Those systems with pertinent positive or pertinent negative responses have been documented in the HPI. ROS Other: All systems not noted in ROS Statement are negative. Past Medical History Past Medical History: Hypertension, Syncope Additional Past Medical History / Comment(s): pt states: "This happened to me once in [facility] (2018)." History of Any Multi-Drug Resistant Organisms: None Reported Past Surgical History: No Surgical Hx Reported Additional Past Surgical History / Comment(s): eye surgery Past Anesthesia/Blood Transfusion Reactions: No Reported Reaction Past Psychological History: No Psychological Hx Reported Smoking Status: Never smoker Past Alcohol Use History: None Reported Past Drug Use History: None Reported General Exam - General Exam Comments Initial Comments: Physical Exam GENERAL: Patient is well-developed and well-nourished. Patient is nontoxic and well- hydrated and is in no distress. HENT: Normocephalic, Atraumatic. EYES: PERRL, EOMI PULMONARY: Unlabored respirations. No audible rales rhonchi or wheezing was noted. CARDIOVASCULAR: There is a regular rate and rhythm without any murmurs gallops or rubs. ABDOMEN: Soft and nontender with normal bowel sounds. SKIN: Skin is clear with no lesions or rashes and otherwise unremarkable. : Deferred NEUROLOGIC: Patient is alert and oriented x3. Moving all extremities spontaneously MUSCULOSKELETAL: Normal extremities with adequate strength and full range of motion. No lower extremity swelling or edema. No calf tenderness. PSYCHIATRIC: Normal psychiatric evaluation. Limitations: no limitations Limitations: no limitations Course Vital Signs 05/01/18 05/01/18 20:44 22:37 Temperature 99.3 F Pulse Rate 100 Pulse Rate [ 80 Sitting] Pulse Rate [ 90 Standing] Pulse Rate [ 71 Supine] Respiratory 18 Rate Blood Pressure 134/85 Blood Pressure 143/103 [Sitting] Blood Pressure 147/107 [Standing] Blood Pressure 136/87 [Supine] O2 Sat by Pulse 99 Oximetry EKG Findings - EKG Comments: EKG Findings:: EKG obtained at 9:01 PM, rate is 85 rhythm is sinus there is a normal axis there are normal intervals, PA 182, QRS 80, QTC is 466 there are no acute ST elevations or depressions is no evidence of acute ischemia infarction or arrhythmia. Medical Decision Making - Medical Decision Making She was seen and evaluated history was obtained from patient, mother and review of medical record that this is the patient has been experiencing intermittent syncope for 3 months duration she has established good outpatient follow-up with cardiology and neurology as well as her primary care. She's been evaluated inpatient for this and had an echo and EEG with no significant findings Patient episode of near-syncope today which resolved prior to arrival, upon arrival she is asymptomatic. EKG was obtained due to history of syncope and episode of near-syncope. EKG was normal sinus rhythm with no acute findings. At this time patient's comfortable with the plan for discharge home and outpatient follow-up. All questions pertaining care were answered return parameters were discussed the patient was discharged home in stable condition. Disposition Clinical Impression: Near syncope Disposition: HOME SELF-CARE Condition: Good Instructions (If sedation given, give patient instructions): Near Syncope (ED), Lightheadedness (ED) Is patient prescribed a controlled substance at d/c from ED?: No Referrals: Ely Sheridan MD [Primary Care Provider] - 1-2 days
[2018-05-01 22:40] VITALS: BP 136/87; PULSE 71
== END 2018-05-01 22:49 | disposition home or self-care (01) ==
LOC: EC 20:23
DX: R55 Syncope and collapse (principal); Z79.3 Long term (current) use of hormonal contraceptives
CPT/HCPCS: 93005; 99283

== ENCOUNTER → 2018-05-03 | Outpatient (CLI) | payer MEDICAID ==
[2018-05-07 13:36] LABS: Urine VMA/Creatinine 24 Hour 1.5 gm/24h (0.8-1.8)
[2018-05-07 13:37] LABS: Metanephrines 24 Hour,Urine 86 ug/day (52-341); Normetanephrine 24 Hour,Urine 307 ug/day (88-444); Total Metanephrines 24 Hour,Ur 393 ug/day (140-785)
== END | disposition home or self-care (01) ==
LOC: LABWHC1 06:40
PROVIDERS: ATTEND Family Medicine
DX: I10 Essential (primary) hypertension (principal); R55 Syncope and collapse; D35.00 Benign neoplasm of unspecified adrenal gland
CPT/HCPCS: 36415; 82384; 83835; 84585

== ENCOUNTER 2018-05-17 18:21 | Observation (INO) | payer MEDICAID ==
[2018-05-17] MEDS ORDERED: SODIUM CHLORIDE 0.9% 1,000 ML IV STA ×2 (18:47)
[2018-05-17] MEDS ORDERED: NITROGLYCERIN SL TABS 0.4 MG TAB SUBLINGUAL PRN (18:47)
[2018-05-17] MEDS ORDERED: LABETALOL SYRINGE 5 MG/ML IVP STA (18:48)
--- NOTE | 2018-05-17 18:49 | ED ---
Syncope HPI - General Chief Complaint: Dizziness Stated Complaint: near syncope Time Seen by Provider: 05/17/18 18:38 Source: patient, RN notes reviewed, old records reviewed Mode of arrival: ambulatory Limitations: no limitations - History of Present Illness Initial Comments: This is a 17-year-old female the ER for evaluation today. She presents today for evaluation of near syncopal event. Patient has history of multiple shows a syncope going on 3 months. Prior hospital admissions and multiple ER visits for same. Patient's currently wearing monitor. Does have history of high blood pressure. Recently taken off blood pressure medications. Patient also denies any nausea vomiting diarrhea no fevers no headache no chest pain or shortness of breath. Patient does feel mildly anxious MD Complaint: almost passed out -: hour(s) Prodromal Symptoms: none -: second(s) Witnessed: no Current Symptoms: back to baseline History: previous syncopal episode Context: at rest Treatments Prior to Arrival: none - Related Data Home Medications Medication Instructions Recorded Confirmed amLODIPine [Norvasc] 2.5 mg PO DAILY 05/17/18 05/17/18 Allergies Allergy/AdvReac Type Severity Reaction Status Date / Time No Known Allergies Allergy Verified 05/17/18 18:37 Review of Systems ROS Statement: Those systems with pertinent positive or pertinent negative responses have been documented in the HPI. ROS Other: All systems not noted in ROS Statement are negative. Past Medical History Past Medical History: Hypertension, Syncope Additional Past Medical History / Comment(s): hx. murmur, episodes of fainting since February, see Dr Ellison H & P History of Any Multi-Drug Resistant Organisms: None Reported Past Surgical History: No Surgical Hx Reported Additional Past Surgical History / Comment(s): eye surgery Past Anesthesia/Blood Transfusion Reactions: No Reported Reaction Past Psychological History: No Psychological Hx Reported Smoking Status: Never smoker - Past Family History Mother Family Medical History: No Reported History Father History Unknown: Yes Family Medical History: Hypertension General Exam Limitations: no limitations General appearance: alert, in no apparent distress, anxious Head exam: Present: atraumatic, normocephalic, normal inspection Eye exam: Present: normal appearance, PERRL, EOMI. Absent: scleral icterus, conjunctival injection, periorbital swelling ENT exam: Present: normal exam, mucous membranes moist Neck exam: Present: normal inspection. Absent: tenderness, meningismus, lymphadenopathy Respiratory exam: Present: normal lung sounds bilaterally. Absent: respiratory distress, wheezes, rales, rhonchi, stridor Cardiovascular Exam: Present: normal rhythm, tachycardia, normal heart sounds. Absent: systolic murmur, diastolic murmur, rubs, gallop, clicks GI/Abdominal exam: Present: soft, normal bowel sounds. Absent: distended, tenderness, guarding, rebound, rigid Extremities exam: Present: normal inspection, full ROM, normal capillary refill. Absent: tenderness, pedal edema, joint swelling, calf tenderness Back exam: Present: normal inspection Neurological exam: Present: alert, oriented X3, CN II-XII intact Psychiatric exam: Present: normal affect, normal mood Skin exam: Present: warm, dry, intact, normal color. Absent: rash Course Vital Signs 05/17/18 05/17/18 18:24 19:14 Temperature 98.4 F Pulse Rate 124 H 82 Respiratory 18 19 Rate Blood Pressure 140/91 136/93 O2 Sat by Pulse 100 98 Oximetry - Reevaluation(s) Reevaluation #1: Medical records reviewed Patient without syncopal event here in the ER EKG Findings - EKG Comments: EKG Findings:: EKG shows sinus rhythm rate of 95, [place] 190, QRS 76, QTc 457 Medical Decision Making - Medical Decision Making 17 female the ER for evaluation near syncopal syncopal event. Patient is currently wearing lunchroom monitor. Patient be admitted for further cardiac eval uation, possible arrhythmia - Lab Data Result diagrams: 05/17/18 18:41 05/18/18 07:37 Lab Results 05/17/18 05/17/18 05/17/18 Range/Units 18:41 18:41 18:41 WBC 11.0 (4.0-11.0) k/uL RBC 5.06 (3.80-5.40) m/uL Hgb 14.3 (11.4-16.0) gm/dL Hct 42.4 (34.0-46.0) % MCV 83.9 (80.0-100.0) fL MCH 28.2 (25.0-35.0) pg MCHC 33.6 (31.0-37.0) g/dL RDW 12.4 (11.5-15.5) % Plt Count 283 (150-450) k/uL Neutrophils % 73 % Lymphocytes % 20 % Monocytes % 5 % Eosinophils % 1 % Basophils % 0 % Neutrophils # 8.0 H (1.3-7.7) k/uL Lymphocytes # 2.2 (1.0-4.8) k/uL Monocytes # 0.5 (0-1.0) k/uL Eosinophils # 0.1 (0-0.7) k/uL Basophils # 0.0 (0-0.2) k/uL PT 10.2 (9.0-12.0) sec INR 0.9 (<1.2) APTT 27.0 (22.0-30.0) sec Sodium 142 (137-145) mmol/L Potassium 3.9 (3.5-5.1) mmol/L Chloride 107 (98-107) mmol/L Carbon Dioxide 22 (22-30) mmol/L Anion Gap 13 mmol/L BUN 12 (7-17) mg/dL Creatinine 0.59 (0.52-1.04) mg/dL Est GFR (CKD-EPI)AfAm >90 (>60 ml/min/1.73 sqM) Est GFR (CKD-EPI)NonAf >90 (>60 ml/min/1.73 sqM) Glucose 99 (74-99) mg/dL Calcium 10.1 (8.4-10.2) mg/dL Magnesium 2.0 (1.6-2.3) mg/dL Total Bilirubin 0.3 (0.2-1.3) mg/dL AST 17 (14-36) U/L ALT 32 (9-52) U/L Alkaline Phosphatase 77 (38-126) U/L Troponin I (0.000-0.034) ng/mL Total Protein 7.7 (6.3-8.2) g/dL Albumin 4.8 (3.5-5.0) g/dL 05/17/18 Range/Units 18:41 WBC (4.0-11.0) k/uL RBC (3.80-5.40) m/uL Hgb (11.4-16.0) gm/dL Hct (34.0-46.0) % MCV (80.0-100.0) fL MCH (25.0-35.0) pg MCHC (31.0-37.0) g/dL RDW (11.5-15.5) % Plt Count (150-450) k/uL Neutrophils % % Lymphocytes % % Monocytes % % Eosinophils % % Basophils % % Neutrophils # (1.3-7.7) k/uL Lymphocytes # (1.0-4.8) k/uL Monocytes # (0-1.0) k/uL Eosinophils # (0-0.7) k/uL Basophils # (0-0.2) k/uL PT (9.0-12.0) sec INR (<1.2) APTT (22.0-30.0) sec Sodium (137-145) mmol/L Potassium (3.5-5.1) mmol/L Chloride (98-107) mmol/L Carbon Dioxide (22-30) mmol/L Anion Gap mmol/L BUN (7-17) mg/dL Creatinine (0.52-1.04) mg/dL Est GFR (CKD-EPI)AfAm (>60 ml/min/1.73 sqM) Est GFR (CKD-EPI)NonAf (>60 ml/min/1.73 sqM) Glucose (74-99) mg/dL Calcium (8.4-10.2) mg/dL Magnesium (1.6-2.3) mg/dL Total Bilirubin (0.2-1.3) mg/dL AST (14-36) U/L ALT (9-52) U/L Alkaline Phosphatase (38-126) U/L Troponin I <0.012 (0.000-0.034) ng/mL Total Protein (6.3-8.2) g/dL Albumin (3.5-5.0) g/dL Disposition Clinical Impression: Syncope, Near syncope Disposition: ADMITTED IP TO THIS HOSP Condition: Fair Is patient prescribed a controlled substance at d/c from ED?: No
[2018-05-17 19:04] LABS: Basophils % (A) 0 %; Eosinophils # (A) 0.1 k/uL (0-0.7); Eosinophils % (A) 1 %; HCT 42.4 % (34.0-46.0); HGB 14.3 gm/dL (11.4-16.0); Lymphocytes # (A) 2.2 k/uL (1.0-4.8); Lymphocytes % (A) 20 %; MCH 28.2 pg (25.0-35.0); MCHC 33.6 g/dL (31.0-37.0); MCV 83.9 fL (80.0-100.0); Monocytes # (A) 0.5 k/uL (0-1.0); Monocytes % (A) 5 %; Neutrophils % (A) 73 %; Platelet Count 283 k/uL (150-450); RBC 5.06 m/uL (3.80-5.40); RDW 12.4 % (11.5-15.5)
[2018-05-17 19:14] LABS: ALT 32 U/L (9-52); AST 17 U/L (14-36); Albumin 4.8 g/dL (3.5-5.0); Alkaline Phosphatase 77 U/L (38-126); Anion Gap 13 mmol/L; Blood Urea Nitrogen 12 mg/dL (7-17); Calcium 10.1 mg/dL (8.4-10.2); Carbon Dioxide 22 mmol/L (22-30); Chloride 107 mmol/L (98-107); Glucose 99 mg/dL (74-99); Potassium 3.9 mmol/L (3.5-5.1); Sodium 142 mmol/L (137-145); Total Bilirubin 0.3 mg/dL (0.2-1.3); Total Protein 7.7 g/dL (6.3-8.2)
[2018-05-17 19:17] LABS: INR 0.9 (<1.2); Prothrombin Time 10.2 sec (9.0-12.0)
[2018-05-17 20:11] LABS: Appearance,Urine Clear (Clear); Bilirubin,Urine Negative (Negative); Blood,Urine Negative (Negative); Color,Urine Light Yellow; Glucose,Urine (UA) Negative (Negative); Ketones,Urine Negative (Negative); Leukocyte Esterase,Urine Negative (Negative); Nitrite,Urine Negative (Negative); Protein,Urine Negative (Negative); Specific Gravity,Urine 1.007 (1.001-1.035); Urobilinogen,Urine <2.0 mg/dL (<2.0)
[2018-05-17 20:27] VITALS: BMI 28.3
[2018-05-17] MEDS ORDERED: MELATONIN 3 MG TABLET PO PRN (22:02)
[2018-05-17] MEDS ORDERED: NALOXONE 0.4 MG/ML 1 ML VIAL IV PRN (22:03)
--- NOTE | 2018-05-17 22:41 | P.HPIM ---
History of Present Illness H&P Date: 05/17/18 Chief Complaint: SOB, palpitation 17 year old female with history of hypertension patient presented due to sudden onset palpitations, and shortness of breath, she was not doing anything out of the ordinary that she thinks has precipitted an attack. she wears a cardiac cath lab manager due to recent history of syncopal attacks. she also reports brief left sided chest pain sharp in nature associated with the attack. she has some OP workup done for secondary causes of hypertension , including workup for pheochromocytoma which showed slightly elevated urine dopamine ( just slightly , to be significant it has to be 2 fold upper normal limit). patient currently feels asymptomatic. she was scheduled to have tilt table test done as OP. she currently continues on low dose norvasc as recommended by her dance coach. otherwise she denies any further attacks of syncope since her last admission , but [place], she had another episode of palpitations and SOB for which she was evaluated in the ED at that time, and all tests returned negative. she denies any fever, chills, abd pain, nausea or vomiting. EKG showed normal sinus rhythm , labs unremarkable I reviewed her Echo cardiogram from last admission , and was unremarkable Review of Systems Pertinent positives as noted in HPI. All other systems were reviewed and are negative Past Medical History Past Medical History: Hypertension, Syncope History of Any Multi-Drug Resistant Organisms: None Reported Past Surgical History: No Surgical Hx Reported Additional Past Surgical History / Comment(s): eye surgery Past Anesthesia/Blood Transfusion Reactions: No Reported Reaction Past Psychological History: No Psychological Hx Reported Smoking Status: Never smoker - Past Family History Mother Family Medical History: No Reported History Father History Unknown: Yes Family Medical History: Hypertension Medications and Allergies Home Medications Medication Instructions Recorded Confirmed Type amLODIPine [Norvasc] 2.5 mg PO DAILY 05/17/18 05/17/18 History Allergies Allergy/AdvReac Type Severity Reaction Status Date / Time No Known Allergies Allergy Verified 05/17/18 18:37 Physical Exam Vitals: Vital Signs Temp Pulse Resp BP Pulse Ox 05/17/18 19:14 82 19 136/93 98 05/17/18 18:24 98.4 F 124 H 18 140/91 100 Intake and Output 05/17/18 05/17/18 05/17/18 06:59 14:59 22:59 Other: Weight 74.843 kg Constitutional: No acute distress, conversant, pleasant Eyes: Anicteric sclerae, moist conjunctiva, no lid-lag Pupils equal round reactive to light ENMT: NC/AT Oropharynx clear, no erythema, exudates Neck: Supple, FROM, no masses, or JVD No carotid bruits No thyromegaly Lungs: Clear to auscultation Clear to percussion Normal respiratory effort, no accessory muscle use Cardiovascular: Heart regular in rate and rhythm, No murmurs, gallops, or rubs No peripheral edema Abdominal: Soft Nontender, no guarding, rebound or rigidity Abdomen moving with respiration Normoactive bowel sounds No hepatomegaly, No splenomegaly No palpable mass No abdominal wall hernia noted Skin: Normal temperature, tone, texture, turgor No induration No subcutaneous nodules No rash, lesions No ulcers Extremities: No digital cyanosis No clubbing Pedal pulses intact and symmetrical Radial pulses intact and symmetrical No calf tenderness Psychiatric: Alert and oriented to person, place and time Appropriate affect fair judgment Neuro Muscles Strength 5/5 in all 4 extremities Sensation to light touch grossly present throughout Cranial nerves II-XII grossly intact No focal sensory deficits Lymphatics: no palpable cervical or supraclavicular , or inguinal lymph nodes Results CBC & Chem 7: 05/17/18 18:41 05/17/18 18:41 Labs: Abnormal Lab Results - Last 24 Hours (Table) 05/17/18 Range/Units 18:41 Neutrophils # 8.0 H (1.3-7.7) k/uL Assessment and Plan Assessment: 17-year-old female with history of hypertension for 2 years presented to the hospital with palpitations and shortness of breath admitted as an observation with anticipated length of stay less than 48 hours for further workup monitoring and cardiology evaluation Plan: Hypertension follow up OP w/u for secondary hypertension urine 24 hour dopamine slightly elevated, dose not meet criteria of 2 fold elevation above upper normal limit palpitations , symptomatic cardiology consult interrogate cardiac event monitor check TSH observation for 24 hours ECHO reviewed unremarkable EKG , sinus rhythm labs unremarkable DVT PPX heparin sc tid Preformed a thorough record review from recent hospitalization as summarized in HPI Surrogate decision-maker: Mother CODE STATUS: Full code Discussed with: Patient, ER, RN Anticipated discharge: <48- hours Anticipated discharge place: Home A total of 60 minutes was spent on the care of this complex patient more than 50% of the time was spent in counseling and care coordination.
[2018-05-17] MEDS: HEPARIN SODIUM,PORCINE 5,000 UNIT/ML 1 ML VIAL SQ SCH (23:23)
--- NOTE | 2018-05-18 07:57 | P.CRDCN ---
<Yvette Pizano A - Last Filed: 05/18/18 09:11> History of Present Illness Consult date: 05/18/18 Consult reason: sycope History of present illness: IMPRESSION / ASSESSMENT: Palpitations and shortness of breath Syncope history undergoing outpatient workup Hypertension PLAN: Evaluate 30 day event monitor Orthostatic vital signs to evaluate for tachycardia Continue amlodipine 2.5 mg daily Patient is cleared from cardiology for discharge home today. Follow up on Sunday for tilt table test as scheduled Follow-up with Dr. Ospina HPI This is a 17-year-old female presented to [facility] emergency center due to sudden onset of palpitations and shortness of breath. She also had a brief episode of left-sided chest pain that was sharp. She also relates that she had some nausea and diaphoresis and her fingers and toes went dark. Her mother relates that every time she has an episode her fingers and toes become dark in color. Patient had a recent hospitalization earlier this month for syncope and was placed in the hospital and seen by Dr. Ospina. Patient had been diagnosed with hypertension a year ago and placed on metoprolol tartrate 25 mg daily. During her stay she did not have any documentation of tachycardia-bradycardia. She had a syncopal episode while in the emergency room and had a prior one in February of this year. Dr. Ospina discontinue the beta shaheen was recommended to follow blood pressures at home. When patient was up to the bathroom her heart rate did jump up into the 120s currently running in the sinus rhythm in the 80s. ROS: No fever chills or rigors, no cough, phlegm or expectoration, reports nausea, no vomiting or diarrhea, no hematuria, dysuria, no musculoskeletal complaints, no strokes or seizures, no skin lesions. EXAMINATION: Gen: This is a 17-year-old female. Vital signs: Patient has been afebrile. She presented with sinus tachycardia 124 currently running in the 80s. Initial blood pressure 140/91. Blood pressure currently 107/67. Pulse ox 100% on room air. HEENT: Head is atraumatic, normocephalic. Pupils equal, round. Sclerae is anicteric. NECK: Supple. No JVD. No lymphadenopathy. No thyromegaly. LUNGS: Clear to auscultation. No wheezes or rhonchi. No intercostal retractions. HEART: Regular rate and rhythm. Systolic ejection murmur 2/6. ABDOMEN: Soft. Bowel sounds are present. No masses. No tenderness. EXTREMITIES: No pedal edema. No calf tenderness. NEUROLOGICAL: Patient is awake, alert and oriented x3. Cranial nerves 2 through 12 are grossly intact. REVIEW OF LABS, ECG & MEDICAL DATA EKG is a normal sinus rhythm with no acute ST-T heart rate 95. CBC and complete metabolic panel within normal limits. Troponin negative on 2 draws. Recent TSH 3.8 on April 23. Echocardiogram revealed EF of 55-60% with trace mitral regurgitation, trace tr icuspid regurgitation, no pulmonary hypertension. Nurse practitioner note has been reviewed, I agree with documented findings and plan of care. Patient was seen and examined. Past Medical History Past Medical History: Hypertension, Syncope Additional Past Medical History / Comment(s): hx. murmur, episodes of fainting since February, see Dr Ellison H & P History of Any Multi-Drug Resistant Organisms: None Reported Past Surgical History: No Surgical Hx Reported Additional Past Surgical History / Comment(s): eye surgery Past Anesthesia/Blood Transfusion Reactions: No Reported Reaction Past Psychological History: No Psychological Hx Reported Smoking Status: Never smoker - Past Family History Mother Family Medical History: No Reported History Father History Unknown: Yes Family Medical History: Hypertension Medications and Allergies Home Medications Medication Instructions Recorded Confirmed Type amLODIPine [Norvasc] 2.5 mg PO DAILY 05/17/18 05/17/18 History Allergies Allergy/AdvReac Type Severity Reaction Status Date / Time No Known Allergies Allergy Verified 05/17/18 18:37 Physical Exam Vitals: Vital Signs Temp Pulse Pulse Resp BP BP Pulse Ox 05/18/18 04:00 98.5 F 79 16 107/67 100 05/18/18 00:00 99.1 F 83 16 122/78 100 05/17/18 23:35 16 05/17/18 20:00 16 05/17/18 19:56 98.5 F 93 16 156/89 100 05/17/18 19:14 82 19 136/93 98 05/17/18 18:24 98.4 F 124 H 18 140/91 100 Intake and Output 05/17/18 05/18/18 05/18/18 22:59 06:59 14:59 Other: Voiding Method Toilet Toilet # Voids 2 2 Weight 74.843 kg Results 05/17/18 18:41 05/18/18 07:37 Cardiac Enzymes 05/17/18 05/17/18 05/18/18 Range/Units 18:41 18:41 01:41 AST 17 (14-36) U/L Troponin I <0.012 <0.012 (0.000-0.034) ng/mL Coagulation 05/17/18 Range/Units 18:41 PT 10.2 (9.0-12.0) sec APTT 27.0 (22.0-30.0) sec CBC 05/17/18 Range/Units 18:41 WBC 11.0 (4.0-11.0) k/uL RBC 5.06 (3.80-5.40) m/uL Hgb 14.3 (11.4-16.0) gm/dL Hct 42.4 (34.0-46.0) % Plt Count 283 (150-450) k/uL Comprehensive Metabolic Panel 05/17/18 Range/Units 18:41 Sodium 142 (137-145) mmol/L Potassium 3.9 (3.5-5.1) mmol/L Chloride 107 (98-107) mmol/L Carbon Dioxide 22 (22-30) mmol/L BUN 12 (7-17) mg/dL Creatinine 0.59 (0.52-1.04) mg/dL Glucose 99 (74-99) mg/dL Calcium 10.1 (8.4-10.2) mg/dL AST 17 (14-36) U/L ALT 32 (9-52) U/L Alkaline Phosphatase 77 (38-126) U/L Total Protein 7.7 (6.3-8.2) g/dL Albumin 4.8 (3.5-5.0) g/dL Current Medications Generic Name Dose Route Start Last Admin Trade Name Freq PRN Reason Stop Dose Admin Amlodipine Besylate 2.5 mg 05/18/18 09:00 Norvasc PO DAILY [facility] Heparin Sodium (Porcine) 5,000 unit 05/18/18 00:00 05/17/18 23:23 Heparin SQ Not Given Q8HR [facility] Melatonin 3 mg 05/17/18 22:02 05/17/18 23:15 Melatonin PO 3 mg HS PRN Administration Insomnia Naloxone HCl 0.2 mg 05/17/18 22:03 Narcan IV Q2M PRN Opioid Reversal Nitroglycerin 0.4 mg 05/17/18 18:47 Nitrostat SUBLINGUAL Q5M PRN Chest Pain Intake and Output 05/17/18 05/18/18 05/18/18 22:59 06:59 14:59 Other: Voiding Method Toilet Toilet # Voids 2 2 Weight 74.843 kg 05/17/18 18:41 05/17/18 18:41 <Srinivasan Sumner - Last Filed: 05/18/18 09:16> Physical Exam Vitals: Vital Signs Temp Pulse Pulse Resp BP BP Pulse Ox 05/18/18 08:00 98.2 F 79 16 143/78 98 05/18/18 07:55 79 16 05/18/18 04:00 98.5 F 79 16 107/67 100 05/18/18 00:00 99.1 F 83 16 122/78 100 05/17/18 23:35 16 05/17/18 20:00 16 05/17/18 19:56 98.5 F 93 16 156/89 100 05/17/18 19:14 82 19 136/93 98 05/17/18 18:24 98.4 F 124 H 18 140/91 100 Intake and Output 05/17/18 05/18/18 05/18/18 22:59 06:59 14:59 Other: Voiding Method Toilet Toilet Toilet # Voids 2 2 Weight 74.843 kg Results 05/17/18 18:41 05/18/18 07:37 Cardiac Enzymes 05/17/18 05/17/18 05/18/18 Range/Units 18:41 18:41 01:41 AST 17 (14-36) U/L Troponin I <0.012 <0.012 (0.000-0.034) ng/mL 05/18/18 Range/Units 07:37 AST 14 (14-36) U/L Troponin I (0.000-0.034) ng/mL Coagulation 05/17/18 Range/Units 18:41 PT 10.2 (9.0-12.0) sec APTT 27.0 (22.0-30.0) sec Lipids 05/18/18 Range/Units 07:37 Triglycerides 57 (<150) mg/dL Cholesterol 142 (<200) mg/dL HDL Cholesterol 38 L (40-60) mg/dL CBC 05/17/18 Range/Units 18:41 WBC 11.0 (4.0-11.0) k/uL RBC 5.06 (3.80-5.40) m/uL Hgb 14.3 (11.4-16.0) gm/dL Hct 42.4 (34.0-46.0) % Plt Count 283 (150-450) k/uL Comprehensive Metabolic Panel 05/17/18 05/18/18 Range/Units 18:41 07:37 Sodium 142 141 (137-145) mmol/L Potassium 3.9 4.5 (3.5-5.1) mmol/L Chloride 107 108 H (98-107) mmol/L Carbon Dioxide 22 23 (22-30) mmol/L BUN 12 9 (7-17) mg/dL Creatinine 0.59 0.56 (0.52-1.04) mg/dL Glucose 99 87 (74-99) mg/dL Calcium 10.1 9.5 (8.4-10.2) mg/dL AST 17 14 (14-36) U/L ALT 32 24 (9-52) U/L Alkaline Phosphatase 77 51 (38-126) U/L Total Protein 7.7 6.6 (6.3-8.2) g/dL Albumin 4.8 4.0 (3.5-5.0) g/dL Current Medications Generic Name Dose Route Start Last Admin Trade Name Freq PRN Reason Stop Dose Admin Amlodipine Besylate 2.5 mg 05/18/18 09:00 Norvasc PO DAILY [facility] Heparin Sodium (Porcine) 5,000 unit 05/18/18 00:00 05/17/18 23:23 Heparin SQ Not Given Q8HR [facility] Melatonin 3 mg 05/17/18 22:02 05/17/18 23:15 Melatonin PO 3 mg HS PRN Administration Insomnia Naloxone HCl 0.2 mg 05/17/18 22:03 Narcan IV Q2M PRN Opioid Reversal Nitroglycerin 0.4 mg 05/17/18 18:47 Nitrostat SUBLINGUAL Q5M PRN Chest Pain Intake and Output 05/17/18 05/18/18 05/18/18 22:59 06:59 14:59 Other: Voiding Method Toilet Toilet Toilet # Voids 2 2 Weight 74.843 kg 05/17/18 18:41 05/18/18 07:37
[2018-05-18 08:28] LABS: ALT 24 U/L (9-52); AST 14 U/L (14-36); Alkaline Phosphatase 51 U/L (38-126); Anion Gap 10 mmol/L; Blood Urea Nitrogen 9 mg/dL (7-17); Calcium 9.5 mg/dL (8.4-10.2); Carbon Dioxide 23 mmol/L (22-30); Chloride 108 mmol/L (98-107); Cholesterol 142 mg/dL (<200); Glucose 87 mg/dL (74-99); HDL Cholesterol 38 mg/dL (40-60); LDL Cholesterol,Calculated 93 mg/dL (0-99); Potassium 4.5 mmol/L (3.5-5.1); Sodium 141 mmol/L (137-145); Total Bilirubin 0.8 mg/dL (0.2-1.3); Total Protein 6.6 g/dL (6.3-8.2); Triglycerides 57 mg/dL (<150)
[2018-05-18] MEDS ORDERED: amLODIPine 2.5 MG TAB PO SCH (09:00)
--- NOTE | 2018-05-18 09:16 | P.CRDCN ---
History of Present Illness History of present illness: Patient interviewed and examined. Admitted with nausea. Elevated heart rates upon standing. Awaiting tilt table test on Sunday which is be scheduled as an outpatient Will check orthostatics She has an event monitor which she activation of she has symptoms Since she had no syncopal spell this time and if she can ambulate in the hallways and if her vitals are stable especially her blood pressure she may go home and follow Dr. Ospina and also follow for that table test on Sunday. Ple ase see full dictation ms practitioner Past Medical History Past Medical History: Hypertension, Syncope Additional Past Medical History / Comment(s): hx. murmur, episodes of fainting since February, see Dr Ellison H & P History of Any Multi-Drug Resistant Organisms: None Reported Past Surgical History: No Surgical Hx Reported Additional Past Surgical History / Comment(s): eye surgery Past Anesthesia/Blood Transfusion Reactions: No Reported Reaction Past Psychological History: No Psychological Hx Reported Smoking Status: Never smoker - Past Family History Mother Family Medical History: No Reported History Father History Unknown: Yes Family Medical History: Hypertension Medications and Allergies Home Medications Medication Instructions Recorded Confirmed Type amLODIPine [Norvasc] 2.5 mg PO DAILY 05/17/18 05/17/18 History Allergies Allergy/AdvReac Type Severity Reaction Status Date / Time No Known Allergies Allergy Verified 05/17/18 18:37 Physical Exam Vitals: Vital Signs Temp Pulse Pulse Resp BP BP Pulse Ox 05/18/18 08:00 98.2 F 79 16 143/78 98 05/18/18 07:55 79 16 05/18/18 04:00 98.5 F 79 16 107/67 100 05/18/18 00:00 99.1 F 83 16 122/78 100 05/17/18 23:35 16 05/17/18 20:00 16 05/17/18 19:56 98.5 F 93 16 156/89 100 05/17/18 19:14 82 19 136/93 98 05/17/18 18:24 98.4 F 124 H 18 140/91 100 Intake and Output 05/17/18 05/18/18 05/18/18 22:59 06:59 14:59 Other: Voiding Method Toilet Toilet Toilet # Voids 2 2 Weight 74.843 kg Results 05/17/18 18:41 05/18/18 07:37 Cardiac Enzymes 05/17/18 05/17/18 05/18/18 Range/Units 18:41 18:41 01:41 AST 17 (14-36) U/L Troponin I <0.012 <0.012 (0.000-0.034) ng/mL 05/18/18 Range/Units 07:37 AST 14 (14-36) U/L Troponin I (0.000-0.034) ng/mL Coagulation 05/17/18 Range/Units 18:41 PT 10.2 (9.0-12.0) sec APTT 27.0 (22.0-30.0) sec Lipids 05/18/18 Range/Units 07:37 Triglycerides 57 (<150) mg/dL Cholesterol 142 (<200) mg/dL HDL Cholesterol 38 L (40-60) mg/dL CBC 05/17/18 Range/Units 18:41 WBC 11.0 (4.0-11.0) k/uL RBC 5.06 (3.80-5.40) m/uL Hgb 14.3 (11.4-16.0) gm/dL Hct 42.4 (34.0-46.0) % Plt Count 283 (150-450) k/uL Comprehensive Metabolic Panel 05/17/18 05/18/18 Range/Units 18:41 07:37 Sodium 142 141 (137-145) mmol/L Potassium 3.9 4.5 (3.5-5.1) mmol/L Chloride 107 108 H (98-107) mmol/L Carbon Dioxide 22 23 (22-30) mmol/L BUN 12 9 (7-17) mg/dL Creatinine 0.59 0.56 (0.52-1.04) mg/dL Glucose 99 87 (74-99) mg/dL Calcium 10.1 9.5 (8.4-10.2) mg/dL AST 17 14 (14-36) U/L ALT 32 24 (9-52) U/L Alkaline Phosphatase 77 51 (38-126) U/L Total Protein 7.7 6.6 (6.3-8.2) g/dL Albumin 4.8 4.0 (3.5-5.0) g/dL Current Medications Generic Name Dose Route Start Last Admin Trade Name Freq PRN Reason Stop Dose Admin Amlodipine Besylate 2.5 mg 05/18/18 09:00 Norvasc PO DAILY [facility] Heparin Sodium (Porcine) 5,000 unit 05/18/18 00:00 05/17/18 23:23 Heparin SQ Not Given Q8HR [facility] Melatonin 3 mg 05/17/18 22:02 05/17/18 23:15 Melatonin PO 3 mg HS PRN Administration Insomnia Naloxone HCl 0.2 mg 05/17/18 22:03 Narcan IV Q2M PRN Opioid Reversal Nitroglycerin 0.4 mg 05/17/18 18:47 Nitrostat SUBLINGUAL Q5M PRN Chest Pain Intake and Output 05/17/18 05/18/18 05/18/18 22:59 06:59 14:59 Other: Voiding Method Toilet Toilet Toilet # Voids 2 2 Weight 74.843 kg 05/17/18 18:41 05/18/18 07:37
[2018-05-18 09:31] VITALS: PULSE 94
[2018-05-18] MEDS: HEPARIN SODIUM,PORCINE 5,000 UNIT/ML 1 ML VIAL SQ SCH (09:50)
[2018-05-18 12:01] VITALS: BP 145/88; RESP 18; TEMP 98.3
--- NOTE | 2018-05-18 12:53 | P.DS ---
Providers Date of admission: 05/17/18 18:47 Expected date of discharge: 05/18/18 Attending physician: Simran Taylor MD Consults: 05/17/18 18:47 Consult Physician Urgent Consulting Provider: Srinivasan Sumner Consult Reason/Comments: arrhythmia Do you want consulting provider notified?: Yes Primary care physician: [facility] Course: The patient is a 17-year-old female with a PMH of hypertension who presented due to a sudden onset of palpitations and shortness of breath. The patient has had multiple similar episodes in the past and has been on a gambling monitor due to her recent history of multiple syncopal attacks. The patient also reported left-sided chest pain during this episode which lasted a few minutes and resolved spontaneously. The patient had a recent workup for pheochromocytoma which was unremarkable other than dopamine 24 hour urine mildly elevated. The patient's TSH was also unremarkable. The patient was subsequently admitted under observation for evaluation by cardiology. The patient's troponins and EKG were unremarkable. Cardiology recommended to check orthostatics which were negative. Subsequently recommended for her to undergo her previously scheduled tilt table testing in 2 days' time and to follow-up with outpatient cardiology. The patient was seen and examined at the bedside on the day of discharge. She reported that her symptoms have not recurred since admission and denied additional chest pain, shortness of breath, palpitations, diaphoresis, nausea, or vomiting. Discussed with the patient in detail that she should not be driving, swimming, or partaking in any activities which could be dangerous with her current syncopal episodes. Physical Examination General: Non-toxic, in no acute distress, appears stated age, normal weight HEENT: NC/AT, anicteric sclerae, moist conjunctiva, no lid-lag, PERRLA Cardiovascular: S1/S2 wnl, no murmurs, rubs, or gallops Lungs: Clear to auscultation, normal respiratory effort, no accessory muscle use Abdominal: Soft, non-tender, non-distended, no guarding, rebound, or rigidity Skin: Warm, dry Extremities: No edema or contractures Psychiatric: Alert and oriented to person, place and time, appropriate affect Neuro: CN II-XII grossly intact, Strength 5/5 in all 4 extremities, Speech intact, Sensation to light touch grossly intact throughout Discharge diagnosis: Palpitations; hypertension A total of 35 minutes of time were spent preparing this complex discharge summary. Patient Condition at Discharge: Fair Plan - Discharge Summary Discharge Rx Participant: No New Discharge Prescriptions: No Action amLODIPine [Norvasc] 2.5 mg PO DAILY Discharge Medication List amLODIPine [Norvasc] 2.5 mg PO DAILY 05/17/18 [History] Follow up Appointment(s)/Referral(s): Ely Sheridan MD [Primary Care Provider] - 1-2 days
== END 2018-05-18 13:21 | disposition home or self-care (01) ==
LOC: EC 18:21 → 1SOBS 18:47
PROVIDERS: ADMIT Internal Medicine; ATTEND Internal Medicine
DX: R00.2 Palpitations (principal); I10 Essential (primary) hypertension; R55 Syncope and collapse; R06.02 Shortness of breath; R07.89 Other chest pain; R11.0 Nausea; R61 Generalized hyperhidrosis; R00.0 Tachycardia, unspecified; R82.5 Elevated urine levels of drugs, medicaments and biological substances; R01.1 Cardiac murmur, unspecified; Z79.899 Other long term (current) drug therapy; Z82.49 Family history of ischemic heart disease and other diseases of the circulatory system
CPT/HCPCS: 96361 ×2; 96374; 99285; 93005; 80061; 80053 ×2; 84443; 83735; 84484 ×2; 85025; 85610; 85730; 81003; G0378 ×2

== ENCOUNTER → 2018-05-20 | Day surgery (SDC) | payer MEDICAID ==
[2018-05-16 12:30] VITALS: BMI 28.3
[~2018-05-20] MED LIST: SODIUM CHLORIDE 0.9% 1,000 ML IV SCH
[2018-05-20 08:21] VITALS: PULSE 106; RESP 18; TEMP 98.2
[2018-05-20 12:34] VITALS: BP 120/61
--- NOTE | 2018-05-20 16:27 | P.PCN ---
Preoperative Diagnosis: Diagnosis Recurrent presyncope and syncope Twelve-lead ECG shows sinus rhythm normal RI narrow QRS normal ST segments early repolarization abnormality, normal variant no delta waves no epsilon waves normal QT interval Tilt table test per protocol Baseline blood pressure 142/85 mmHg Baseline heart rate 140 beats a minute Patient was tilted upright at an angle of 70 per protocol Heart rate increased 225 beats a minute and remained between 115-138 beats a minute for the next 8-10 minutes At 8-10 minutes she felt really hot and nauseous and fuzzy in the head Soon, her blood pressure dropped to 57 mmHg Associated heart rate of 60 beats a minute. Impression Increase heart rate with upright position of greater than 30 bpm within the first 10 minutes followed by sudden drop in blood pressure Normal ECG Likely postural tachycardia syndrome with secondary Neurocardiogenic syncope Versus Severe neurocardiogenic syncope
== END ==
LOC: CATHEP 07:49
PROVIDERS: ATTEND Internal Medicine Clinical Cardiac Electrophysiology
DX: R55 Syncope and collapse (principal)
CPT/HCPCS: 82533; 93660

== ENCOUNTER → 2020-04-20 | Outpatient (CLI) | payer MEDICAID ==
--- NOTE | 2020-04-20 10:22 | XR ---
EXAMINATION TYPE: XR chest 2V DATE OF EXAM: 04/20/2020 COMPARISON: 04/22/2018 INDICATION: Fever TECHNIQUE: Frontal and lateral views of the chest are obtained. FINDINGS: The heart size is normal. The pulmonary vasculature is normal. The lungs are clear. IMPRESSION: 1. No acute pulmonary process.
[2020-04-20 15:19] LABS: Basophils # (A) 0.03 X 10*3/uL (0.00-0.10); Basophils % (A) 0.5 %; Eosinophils # (A) 0.07 X 10*3/uL (0.04-0.35); Eosinophils % (A) 1.1 %; HCT 39.9 % (37.2-46.3); Lymphocytes # (A) 1.39 X 10*3/uL (0.90-5.00); MCH 29.2 pg (27.0-32.0); MCHC 32.6 g/dL (32.0-37.0); MCV 89.7 fL (80.0-97.0); Mean Platelet Volume 12.1 fL (9.5-12.2); Monocytes # (A) 0.35 X 10*3/uL (0.20-1.00); Monocytes % (A) 5.3 %; Neutrophils # (A) 4.73 X 10*3/uL (1.80-7.70); Neutrophils % (A) 71.2 %; Platelet Count 287 X 10*3/uL (140-440); RBC 4.45 X 10*6/uL (4.10-5.20); RDW 12.2 % (11.5-14.5); WBC 6.63 X 10*3/uL (4.50-10.00)
[2020-04-20 17:47] LABS: Hepatitis A Antibody IgM Non-Reactive (Non-Reactive); Hepatitis B Core IgM Non-Reactive (Non-Reactive); Hepatitis B Surface Antigen Non-Reactive (Non-Reactive); Hepatitis C IgG Antibody Non-Reactive (Non-Reactive)
[2020-04-20 18:32] LABS: ALT 27 U/L (8-44); AST 37 U/L (13-35); African American GFR (CKD) 143.5 (60.0-200.0); Albumin/Globulin Ratio 1.75 (1.60-3.17); Alkaline Phosphatase 79 U/L (41-126); BUN/Creat Ratio 17.14 Ratio (12.00-20.00); C Reactive Protein <0.4 mg/dL (0.0-0.8); Calcium 9.6 mg/dL (8.7-10.3); Carbon Dioxide 25.3 mmol/L (21.6-31.8); Chloride 106 mmol/L (96-109); Globulin 2.8 g/dL (1.6-3.3); Glucose 96 mg/dL (70-110); Non-African American GFR(CKD) 123.9 (60.0-200.0); Potassium 4.1 mmol/L (3.5-5.5); Rheumatoid Factor, Qnt 6 IU/mL (0-15); Sodium 140 mmol/L (135-145); Total Bilirubin 0.4 mg/dL (0.2-1.2); Total Protein 7.7 g/dL (6.2-8.2)
[2020-04-20 20:07] LABS: EBV-EA (IgG) <0.2 AI; EBV-EBNA(IgG) <0.2 AI; EBV-VCA (IgG) <0.2 AI; EBV-VCA (IgM) <0.2 AI
[2020-04-20 20:39] LABS: HIV 2 AB Non-Reactive (Non-Reactive); HIV AB P24 Non-Reactive (Non-Reactive); HIV P24 AG Non-Reactive (Non-Reactive)
[2020-04-20 21:33] LABS: Erythrocyte Sedimentation Rate 10 mm/Hr (0-20)
[2020-04-20 21:56] LABS: Protein, Total 6.9 g/dL (6.2-8.2)
[2020-04-23 15:13] LABS: Albumin 4.28 g/dL (3.80-4.90); Gamma Globulin 0.86 g/dL (0.70-1.50)
== END | disposition home or self-care (01) ==
LOC: LABWHC1 09:18
PROVIDERS: ATTEND Internal Medicine Infectious Disease
DX: R50.9 Fever, unspecified (principal)
CPT/HCPCS: 36415; 71046; 80053; 80074; 84165; 85025; 85652; 86038; 86140; 86431; 86644; 86645; 86663; 86664; 86665; 87040; 87390

== ENCOUNTER → 2020-04-26 | Outpatient (CLI) | payer MEDICAID ==
--- NOTE | 2020-04-26 15:18 | CT ---
EXAMINATION TYPE: CT abdomen pelvis w con DATE OF EXAM: 04/26/2020 HISTORY: fever unknown origin. CT DLP: 587.9mGycm Automated Exposure Control for Dose Reduction was Utilized. CONTRAST: CT scan of the abdomen and pelvis is performed with oral and with IV Contrast, patient injected with 100 mL of Isovue 300. COMPARISON: None FINDINGS: LUNG BASES: No significant abnormality is appreciated. LIVER/GB: No significant abnormality is appreciated. PANCREAS: No significant abnormality is seen. SPLEEN: No significant abnormality is seen. ADRENALS: No significant abnormality is seen. KIDNEYS: Symmetric cortical medullary uptake and excretion without concerning solid or cystic renal m ass or hydronephrosis seen bilaterally. BOWEL: Oral contrast reaches the level of the proximal to mid left colon. No suspicious small or larg e bowel dilatation. UTERUS/ADNEXA: Anteverted uterus. LYMPH NODES: No greater than 1cm abdominal or pelvic lymph nodes are appreciated. OSSEOUS STRUCTURES: No significant abnormality is seen. OTHER: Small umbilical hernia containing fat and tiny mesenteric vessels. IMPRESSION: No significant finding is seen to account for patient's clinical symptoms.
== END | disposition home or self-care (01) ==
LOC: RADCTMAIN 12:53
PROVIDERS: ATTEND Internal Medicine Infectious Disease
DX: R50.9 Fever, unspecified (principal)
CPT/HCPCS: 74177; Q9967

== ENCOUNTER → 2020-07-16 | Outpatient (CLI) | payer MEDICAID ==
[2020-07-16 20:59] LABS: EBV-EA (IgG) <0.2 AI; EBV-EBNA(IgG) <0.2 AI; EBV-VCA (IgG) <0.2 AI; EBV-VCA (IgM) <0.2 AI
== END | disposition home or self-care (01) ==
LOC: LABWHC1 11:16
PROVIDERS: ATTEND Internal Medicine
DX: I49.8 Other specified cardiac arrhythmias (principal); R55 Syncope and collapse; R50.9 Fever, unspecified; Z86.79 Personal history of other diseases of the circulatory system
CPT/HCPCS: 36415; 86618; 86663; 86664; 86665

== ENCOUNTER → 2020-09-10 | Outpatient (CLI) | payer BC | END | disposition home or self-care (01) | LOC: LABWHC1 10:24 | PROVIDERS: ATTEND Family Medicine | DX: R50.9 Fever, unspecified (principal); R51.9 Headache, unspecified; R09.89 Other specified symptoms and signs involving the circulatory and respiratory systems | CPT/HCPCS: 84585 ==

== ENCOUNTER → 2020-09-11 | Outpatient (CLI) | payer BC | END | disposition home or self-care (01) | LOC: LABWHC1 10:22 | PROVIDERS: ATTEND Family Medicine | DX: R51.9 Headache, unspecified (principal) | CPT/HCPCS: 36415; 83835 ==

== ENCOUNTER 2022-08-23 01:59 | Emergency (ER) | payer BC ==
[2022-08-23] MEDS ORDERED: SODIUM CHLORIDE 0.9% 1,000 ML IV ONE (02:42)
[2022-08-23 03:34] VITALS: BP 132/80; PULSE 93; RESP 16; TEMP 98.3
--- NOTE | 2022-08-23 04:06 | XR ---
EXAM: XR Abdomen, 1 View CLINICAL HISTORY: ITS.REASON XR Reason: abdominal pain TECHNIQUE: Frontal view of the abdomen/pelvis. COMPARISON: Reference is made to prior CT dated 04/26/2020 FINDINGS: Intraperitoneal space: No free air. Gastrointestinal tract: Unremarkable. No dilation. Bones/joints: Unremarkable. IMPRESSION: Normal abdomen/pelvis x-rays.
[2022-08-23 04:13] LABS: Appearance,Urine Clear (Clear); Bilirubin,Urine Negative (Negative); Blood,Urine Negative (Negative); Color,Urine Light Yellow; Glucose,Urine (UA) Negative (Negative); Ketones,Urine Negative (Negative); Leukocyte Esterase,Urine Small (Negative); Nitrite,Urine Negative (Negative); PH, Urine 7.5 (5.0-8.0); Protein,Urine Negative (Negative); RBC,Urine 1 /hpf (0-5); Specific Gravity,Urine 1.005 (1.001-1.035); Squamous Epithelial Cell,Urine 1 /hpf (0-4); Urobilinogen,Urine <2.0 mg/dL (<2.0); WBC,Urine 2 /hpf (0-5)
[2022-08-23 04:16] LABS: ALT 28 U/L (4-34); AST 30 U/L (14-36); African American GFR (CKD) >90 (>60 ml/min/1.73 sqM); Albumin 4.5 g/dL (3.5-5.0); Alkaline Phosphatase 83 U/L (38-126); Amylase 44 U/L (30-110); Anion Gap 11 mmol/L; Blood Urea Nitrogen 11 mg/dL (7-17); Calcium 9.6 mg/dL (8.4-10.2); Carbon Dioxide 23 mmol/L (22-30); Chloride 103 mmol/L (98-107); Glucose 113 mg/dL (74-99); Lipase 43 U/L (23-300); Non-African American GFR(CKD) >90 (>60 ml/min/1.73 sqM); Potassium 3.8 mmol/L (3.5-5.1); Sodium 137 mmol/L (137-145); Total Bilirubin 0.7 mg/dL (0.2-1.3); Total Protein 7.3 g/dL (6.3-8.2)
[2022-08-23 04:35] LABS: Basophils % (A) 0 %; Eosinophils % (A) 0 %; HCT 43.6 % (34.0-46.0); HGB 14.3 gm/dL (11.4-16.0); Lymphocytes # (A) 1.3 k/uL (1.0-4.8); Lymphocytes % (A) 8 %; MCH 28.2 pg (25.0-35.0); MCHC 32.8 g/dL (31.0-37.0); Mean Platelet Volume 9.6; Monocytes # (A) 0.9 k/uL (0-1.0); Monocytes % (A) 6 %; Neutrophils # (A) 13.3 k/uL (1.3-7.7); Neutrophils % (A) 85 %; Platelet Count 280 k/uL (150-450); RBC 5.07 m/uL (3.80-5.40); RDW 12.7 % (11.5-15.5); WBC 15.6 k/uL (3.8-10.6)
--- NOTE | 2022-08-23 04:53 | ED ---
General Adult HPI - General Chief complaint: Chest Pain Stated complaint: chest pain/SOB Time Seen by Provider: 08/23/22 02:23 Source: patient Mode of arrival: ambulatory Limitations: no limitations - History of Present Illness Initial comments: This patient is a 22-year-old woman presenting to have evaluation for syncopal episode. She does give history of previous syncopal episodes and history of pots. The patient denies injury. States she did not fall. She states she feels a little weaker than usual but otherwise at baseline. No chest pain, d iaphoresis, nausea or vomiting. -: hour(s) Severity scale (1-10): 0 Consistency: now resolved Improves with: none Worsens with: none Associated Symptoms: syncope, weakness Treatments Prior to Arrival: none - Related Data Home Medications Medication Instructions Recorded Confirmed amLODIPine [Norvasc] 2.5 mg PO DAILY 05/17/18 05/20/18 Allergies Allergy/AdvReac Type Severity Reaction Status Date / Time No Known Allergies Allergy Verified 05/20/18 08:07 Review of Systems ROS Statement: Those systems with pertinent positive or pertinent negative responses have been documented in the HPI. ROS Other: All systems not noted in ROS Statement are negative. Constitutional: Denies: fever, chills Respiratory: Denies: cough, dyspnea Cardiovascular: Reports: syncope. Denies: chest pain, palpitations, orthopnea, edema Gastrointestinal: Denies: abdominal pain, nausea, vomiting, melena, hematochezia Genitourinary: Denies: dysuria, hematuria, abnormal menses Musculoskeletal: Denies: back pain Skin: Denies: rash Neurological: Denies: headache, weakness, numbness Past Medical History Past Medical History: Hypertension, Syncope Additional Past Medical History / Comment(s): hx. murmur, episodes of fainting since February, see Dr Ellison H & P History of Any Multi-Drug Resistant Organisms: None Reported Past Surgical History: No Surgical Hx Reported Additional Past Surgical History / Comment(s): eye surgery Past Anesthesia/Blood Transfusion Reactions: No Reported Reaction Past Psychological History: No Psychological Hx Reported Smoking Status: Never smoker Past Alcohol Use History: None Reported Past Drug Use History: None Reported - Past Family History Mother Family Medical History: No Reported History Father History Unknown: Yes Family Medical History: Hypertension General Exam Limitations: no limitations General appearance: alert, in no apparent distress Head exam: Present: atraumatic, normocephalic Eye exam: Present: normal appearance. Absent: scleral icterus, conjunctival inj ection ENT exam: Present: normal oropharynx Neck exam: Present: normal inspection Respiratory exam: Present: normal lung sounds bilaterally. Absent: respiratory distress, wheezes, rales, rhonchi, stridor Cardiovascular Exam: Present: regular rate, normal rhythm, normal heart sounds. Absent: systolic murmur, diastolic murmur, rubs, gallop GI/Abdominal exam: Present: soft. Absent: distended, tenderness, guarding, rebound, rigid Extremities exam: Present: normal inspection, normal capillary refill. Absent: pedal edema, calf tenderness Back exam: Present: normal inspection. Absent: CVA tenderness (R), CVA tenderness (L) Neurological exam: Present: alert Skin exam: Present: warm, dry, intact, normal color. 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 The patient's physical exam is unremarkable and the workup only revealing mild leukocytosis which suspect is related to the syncopal episode. The patient back at baseline, we discussed appropriate further care and follow-up as well as return parameters. Was pt. sent in by a medical professional or institution (, PA, INTERNAL INVESTIGATOR, urgent care, hospital, or longterm...) When possible be specific @ -[No] Did you speak to anyone other than the patient for history (EMS, parent, family, police, friend...)? What history was obtained from this source @ -[No] Did you review nursing and triage notes (agree or disagree)? Why? @ -[I reviewed and agree with nursing and triage notes] Were old charts reviewed (outside hosp., previous admission, EMS record, old EKG, old radiological studies, urgent care reports/EKG's, longterm records)? Report findings @ -[No old charts were reviewed] Differential Diagnosis (chest pain, altered mental status, abdominal pain women, abdominal pain men, vaginal bleeding, weakness, fever, dyspnea, syncope, headache, dizziness, GI bleed, back pain, seizure, CVA, palpatations, mental health, musculoskeletal)? @ -[Differential Syncope: Valvular disease, hypertrophic cardiomyopathy, pulmonary embolism, tamponade, tachycardia, bradycardia, IL, hypovolemia, hemorrhage, dissection, anemia, intracranial hemorrhage, seizure, hypoglycemia, carbon monoxide poisoning, this is not meant to be an all-inclusive list. EKG interpreted by me (3pts min.). @ -[As above] X-rays interpreted by me (1pt min.). @ -[As above CT interpreted by me (1pt min.). @ -[None done] U/S interpreted by me (1pt. min.). @ -[None done] What testing was considered but not performed or refused? (CT, X-rays, U/S, labs)? Why? @ -[None] What meds were considered but not given or refused? Why? @ -[None] Did you discuss the management of the patient with other professionals (professionals i.e. , PA, INTERNAL INVESTIGATOR, lab, RT, psych nurse, vp digital marketing social media and crm, central communications specialist, teacher, tactical response group officer, correctional casework specialist)? Give summary @ -[No] Was smoking cessation discussed for >3mins.? @ -[No] Was critical care preformed (if so, how long)? @ -[No] Were there social determinants of health that impacted care today? How? (Homelessness, low income, unemployed, alcoholism, drug addiction, transportation, low edu. Level, literacy, decrease access to med. care, halfway, rehab)? @ -[No] Was there de-escalation of care discussed even if they declined (Discuss DNR or withdrawal of care, Hospice)? DNR status @ -[No] What co-morbidities impacted this encounter? (DM, HTN, Smoking, COPD, CAD, Cancer, CVA, ARF, Chemo, Hep., AIDS, mental health diagnosis, sleep apnea, mor bid obesity)? @ -[None] Was patient admitted / discharged? Hospital course, mention meds given and route, prescriptions, significant lab abnormalities, going to OR and other pertinent info. @ -[As above Undiagnosed new problem with uncertain prognosis? @ -[No] Drug Therapy requiring intensive monitoring for toxicity (Heparin, Nitro, Insulin, Cardizem)? @ -[No] Were any procedures done? @ -[No] Diagnosis/symptom? @ -[Acute syncope Acute, or Chronic, or Acute on Chronic? @ -[default] Uncomplicated (without systemic symptoms) or Complicated (systemic symptoms)? @ -[Uncomplicated Side effects of treatment? @ -[No] Exacerbation, Progression, or Severe Exacerbation? @ -[No] Poses a threat to life or bodily function? How? (Chest pain, USA, IL, pneumonia, PE, COPD, DKA, ARF, appy, cholecystitis, CVA, Diverticulitis, Homicidal, Suicidal, threat to staff... and all critical care pts) @ -[No] - Lab Data Result diagrams: 08/23/22 02:20 08/23/22 02:20 Lab Results 08/23/22 08/23/22 08/23/22 Range/Units 02:20 02:20 02:20 WBC 15.6 H (3.8-10.6) k/uL RBC 5.07 (3.80-5.40) m/uL Hgb 14.3 (11.4-16.0) gm/dL Hct 43.6 (34.0-46.0) % MCV 86.0 (80.0-100.0) fL MCH 28.2 (25.0-35.0) pg MCHC 32.8 (31.0-37.0) g/dL RDW 12.7 (11.5-15.5) % Plt Count 280 (150-450) k/uL MPV 9.6 Neutrophils % 85 % Lymphocytes % 8 % Monocytes % 6 % Eosinophils % 0 % Basophils % 0 % Neutrophils # 13.3 H (1.3-7.7) k/uL Lymphocytes # 1.3 (1.0-4.8) k/uL Monocytes # 0.9 (0-1.0) k/uL Eosinophils # 0.0 (0-0.7) k/uL Basophils # 0.0 (0-0.2) k/uL Sodium 137 (137-145) mmol/L Potassium 3.8 (3.5-5.1) mmol/L Chloride 103 (98-107) mmol/L Carbon Dioxide 23 (22-30) mmol/L Anion Gap 11 mmol/L BUN 11 (7-17) mg/dL Creatinine 0.58 (0.52-1.04) mg/dL Est GFR (CKD-EPI)AfAm >90 (>60 ml/min/1.73 sqM) Est GFR (CKD-EPI)NonAf >90 (>60 ml/min/1.73 sqM) Glucose 113 H (74-99) mg/dL Plasma Lactic Acid Werner 1.7 (0.7-2.0) mmol/L Calcium 9.6 (8.4-10.2) mg/dL Total Bilirubin 0.7 (0.2-1.3) mg/dL AST 30 (14-36) U/L ALT 28 (4-34) U/L Alkaline Phosphatase 83 (38-126) U/L Troponin I (0.000-0.034) ng/mL Total Protein 7.3 (6.3-8.2) g/dL Albumin 4.5 (3.5-5.0) g/dL Amylase 44 (30-110) U/L Lipase 43 (23-300) U/L Urine Color Urine Appearance (Clear) Urine pH (5.0-8.0) Ur Specific [place] (1.001-1.035) Urine Protein (Negative) Urine Glucose (UA) (Negative) Urine Ketones (Negative) Urine Blood (Negative) Urine Nitrite (Negative) Urine Bilirubin (Negative) Urine Urobilinogen (<2.0) mg/dL Ur Leukocyte Esterase (Negative) Urine RBC (0-5) /hpf Urine WBC (0-5) /hpf Ur Squamous Epith Cells (0-4) /hpf Urine HCG, Qual (Not Detectd) 08/23/22 08/23/22 08/23/22 Range/Units 02:20 04:05 04:05 WBC (3.8-10.6) k/uL RBC (3.80-5.40) m/uL Hgb (11.4-16.0) gm/dL Hct (34.0-46.0) % MCV (80.0-100.0) fL MCH (25.0-35.0) pg MCHC (31.0-37.0) g/dL RDW (11.5-15.5) % Plt Count (150-450) k/uL MPV Neutrophils % % Lymphocytes % % Monocytes % % Eosinophils % % Basophils % % Neutrophils # (1.3-7.7) k/uL Lymphocytes # (1.0-4.8) k/uL Monocytes # (0-1.0) k/uL Eosinophils # (0-0.7) k/uL Basophils # (0-0.2) k/uL Sodium (137-145) mmol/L Potassium (3.5-5.1) mmol/L Chloride (98-107) mmol/L Carbon Dioxide (22-30) mmol/L Anion Gap mmol/L BUN (7-17) mg/dL Creatinine (0.52-1.04) mg/dL Est GFR (CKD-EPI)AfAm (>60 ml/min/1.73 sqM) Est GFR (CKD-EPI)NonAf (>60 ml/min/1.73 sqM) Glucose (74-99) mg/dL Plasma Lactic Acid Werner (0.7-2.0) mmol/L Calcium (8.4-10.2) mg/dL Total Bilirubin (0.2-1.3) mg/dL AST (14-36) U/L ALT (4-34) U/L Alkaline Phosphatase (38-126) U/L Troponin I <0.012 (0.000-0.034) ng/mL Total Protein (6.3-8.2) g/dL Albumin (3.5-5.0) g/dL Amylase (30-110) U/L Lipase (23-300) U/L Urine Color Light Yellow Urine Appearance Clear (Clear) Urine pH 7.5 (5.0-8.0) Ur Specific [place] 1.005 (1.001-1.035) Urine Protein Negative (Negative) Urine Glucose (UA) Negative (Negative) Urine Ketones Negative (Negative) Urine Blood Negative (Negative) Urine Nitrite Negative (Negative) Urine Bilirubin Negative (Negative) Urine Urobilinogen <2.0 (<2.0) mg/dL Ur Leukocyte Esterase Small H (Negative) Urine RBC 1 (0-5) /hpf Urine WBC 2 (0-5) /hpf Ur Squamous Epith Cells 1 (0-4) /hpf Urine HCG, Qual Not Detected (Not Detectd) Disposition Clinical Impression: Near syncope Disposition: HOME SELF-CARE Condition: Good Instructions (If sedation given, give patient instructions): Near Syncope (ED) Is patient prescribed a controlled substance at d/c from ED?: No Referrals: Ely Sheridan MD [Primary Care Provider] - 1-2 days
== END 2022-08-23 05:15 | disposition home or self-care (01) ==
LOC: EC 01:59
DX: R55 Syncope and collapse (principal); I10 Essential (primary) hypertension; Z79.899 Other long term (current) drug therapy
CPT/HCPCS: 36415; 74018; 80053; 81001; 81025; 82150; 83605; 83690; 84484; 85025; 93005; 96360; 99285

== ENCOUNTER → 2022-12-19 | Outpatient (CLI) | payer BC ==
--- NOTE | 2022-12-19 12:58 | XR ---
EXAMINATION TYPE: XR hand complete RT DATE OF EXAM: 12/19/2022 COMPARISON: None HISTORY: Pain second metacarpal TECHNIQUE: 3 view right hand FINDINGS: No acute fracture or dislocation is evident. Soft tissues are normal. Joint spaces are pres erved. Follow up exams can be performed 7-10 days from acute trauma for continued pain. IMPRESSION: 1. No acute osseous abnormality right hand
== END | disposition home or self-care (01) ==
LOC: RADXRMAIN 11:04
PROVIDERS: ATTEND Family Medicine
DX: M79.641 Pain in right hand (principal)

== ENCOUNTER 2023-06-06 17:28 | Emergency (ER) | payer BC ==
[2023-06-06] MEDS: SODIUM CHLORIDE 0.9% 1,000 ML IV STA (18:35)
[2023-06-06 18:37] LABS: Basophils % (A) 0 %; Eosinophils # (A) 0.2 k/uL (0-0.7); Eosinophils % (A) 1 %; HCT 43.6 % (34.0-46.0); HGB 14.2 gm/dL (11.4-16.0); Lymphocytes # (A) 0.8 k/uL (1.0-4.8); Lymphocytes % (A) 5 %; MCH 28.5 pg (25.0-35.0); MCHC 32.7 g/dL (31.0-37.0); MCV 87.4 fL (80.0-100.0); Mean Platelet Volume 9.2; Monocytes # (A) 0.7 k/uL (0-1.0); Monocytes % (A) 4 %; Neutrophils # (A) 15.3 k/uL (1.3-7.7); Neutrophils % (A) 90 %; Platelet Count 237 k/uL (150-450); RBC 4.99 m/uL (3.80-5.40); RDW 13.4 % (11.5-15.5)
[2023-06-06] MEDS: ONDANSETRON 4 MG/2 ML VIAL IVP STA (18:45)
[2023-06-06 18:53] LABS: ALT 21 U/L (4-34); AST 20 U/L (14-36); African American GFR (CKD) >90 (>60 ml/min/1.73 sqM); Albumin 4.7 g/dL (3.5-5.0); Alkaline Phosphatase 80 U/L (38-126); Anion Gap 9 mmol/L; Blood Urea Nitrogen 14 mg/dL (7-17); Calcium 9.4 mg/dL (8.4-10.2); Carbon Dioxide 25 mmol/L (22-30); Chloride 105 mmol/L (98-107); Glucose 95 mg/dL (74-99); Non-African American GFR(CKD) >90 (>60 ml/min/1.73 sqM); Potassium 3.9 mmol/L (3.5-5.1); Sodium 139 mmol/L (137-145); Total Bilirubin 0.5 mg/dL (0.2-1.3); Total Protein 7.5 g/dL (6.3-8.2)
--- NOTE | 2023-06-06 19:07 | ED ---
General Adult HPI - General Chief complaint: Syncope Stated complaint: light-headed/nausea Time Seen by Provider: 06/06/23 17:30 Source: patient Mode of arrival: ambulatory Limitations: no limitations - History of Present Illness Initial comments: 22-year-old female with past medical history of POTS who presents to the emergency department reporting nausea, vomiting, diarrhea and sore throat. Patient thinks that she is developing an upper respiratory infection. Symptoms started today. She thinks that this is exacerbating her POTS. States that she has palpitations and feels like she is going to pass out. She has not attempted take any medications at home for symptoms. Denies any fevers. No chest pain or difficulty breathing. No abdominal pain. No concern for . No changes in her bowel or bladder habits. No other alleviating, precipitating modifying factors - Related Data Home Medications Medication Instructions Recorded Confirmed amLODIPine [Norvasc] 2.5 mg PO DAILY 05/17/18 05/20/18 Previous Rx's Medication Instructions Recorded Amoxicillin 500 mg PO BID #20 capsule 06/06/23 methylPREDNISolone Dose Pack 4 mg PO DIRECTED #21 tab 06/06/23 [Medrol Dose Pack] Allergies Allergy/AdvReac Type Severity Reaction Status Date / Time No Known Allergies Allergy Verified 05/20/18 08:07 Review of Systems ROS Statement: Those systems with pertinent positive or pertinent negative responses have been documented in the HPI. ROS Other: All systems not noted in ROS Statement are negative. Past Medical History Past Medical History: Hypertension, Syncope Additional Past Medical History / Comment(s): hx. murmur, episodes of fainting since February, see Dr Ellison [facility] & [facility] History of Any Multi-Drug Resistant Organisms: None Reported Past Surgical History: No Surgical Hx Reported Additional Past Surgical History / Comment(s): eye surgery Past Anesthesia/Blood Transfusion Reactions: No Reported Reaction Past Psychological History: No Psychological Hx Reported Smoking Status: Never smoker Past Alcohol Use History: None Reported Past Drug Use History: None Reported - Past Family History Mother Family Medical History: No Reported History Father History Unknown: Yes Family Medical History: Hypertension General Exam Limitations: no limitations General appearance: alert, in no apparent distress Head exam: Present: atraumatic, normocephalic, normal inspection Eye exam: Present: normal appearance, PERRL, EOMI. Absent: scleral icterus, conjunctival injection, periorbital swelling ENT exam: Present: normal exam, mucous membranes moist Neck exam: Present: normal inspection. Absent: tenderness, meningismus, lymphadenopathy Respiratory exam: Present: normal lung sounds bilaterally. Absent: respiratory distress, wheezes, rales, rhonchi, stridor Cardiovascular Exam: Present: normal rhythm, tachycardia, normal heart sounds. Absent: systolic murmur, diastolic murmur, rubs, gallop, clicks GI/Abdominal exam: Present: soft, normal bowel sounds. Absent: distended, tenderness, guarding, rebound, rigid Extremities exam: Present: normal inspection, full ROM, normal capillary refill. Absent: tenderness, pedal edema, joint swelling, calf tenderness Back exam: Present: normal inspection Neurological exam: Present: alert, oriented X3, CN II-XII intact Psychiatric exam: Present: normal affect, normal mood Skin exam: Present: warm, dry, intact, normal color. 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 sent in by a medical professional or institution (, PA, GLASS INSTALLER, urgent care, hospital, or fci...) When possible be specific @ -No Did you speak to anyone other than the patient for history (EMS, parent, family, police, friend...)? What history was obtained from this source @ -No Did you review nursing and triage notes (agree or disagree)? Why? @ -I reviewed and agree with nursing and triage notes Were old charts reviewed (outside hosp., previous admission, EMS record, old EKG, old radiological studies, urgent care reports/EKG's, fci records)? Report findings @ -No old charts were reviewed Differential Diagnosis (chest pain, altered mental status, abdominal pain women, abdominal pain men, vaginal bleeding, weakness, fever, dyspnea, syncope, headache, dizziness, GI bleed, back pain, seizure, CVA, palpatations, mental health, musculoskeletal)? @ -Differential Palpitations Ventricular arrhythmias, atrial arrhythmias, myocardial infarction, anemia, thyrotoxicosis, electrolyte imbalance, hypokalemia, pulmonary embolism, pulmonary disease, drugs, alcohol, anxiety, stress.... This is not meant to be an all-inclusive list. EKG interpreted by me (3pts min.). @ -Yes and demonstrates sinus tachycardia with a rate of 107. RI interval 164. QRS 101. QTc of 382. No acute ST segment elevations or depressions X-rays interpreted by me (1pt min.). @ -None done CT interpreted by me (1pt min.). @ -None done U/S interpreted by me (1pt. min.). @ -None done What testing was considered but not performed or refused? (CT, X-rays, U/S, labs)? Why? @ -None What meds were considered but not given or refused? Why? @ -None Did you discuss the management of the patient with other professionals (professionals i.e. , PA, GLASS INSTALLER, lab, RT, psych nurse, social and political studies professor, family lawyer, teacher, booking officer, rn case manager)? Give summary @ -No Was smoking cessation discussed for >3mins.? @ -No Was critical care preformed (if so, how long)? @ -No Were there social determinants of health that impacted care today? How? (Homelessness, low income, unemployed, alcoholism, drug addiction, transportation, low edu. Level, literacy, decrease access to med. care, half-way, rehab)? @ -No Was there de-escalation of care discussed even if they declined (Discuss DNR or withdrawal of care, Hospice)? DNR status @ -No What co-morbidities impacted this encounter? (DM, HTN, Smoking, COPD, CAD, Cancer, CVA, ARF, Chemo, Hep., AIDS, mental health diagnosis, sleep apnea, morbid obesity)? @ -POTS Was patient admitted / discharged? Hospital course, mention meds given and route, prescriptions, significant lab abnormalities, going to OR and other pertinent info. @ -Upon arrival patient was seen and examined in room 29. Thorough history and physical exam was performed. IV access was established. Patient was given IV fluids. Laboratory studies are conducted. Patient is reevaluated and does have some improvement in her symptoms. I discussed the diagnosis, differential and treatment options. Patient feels comfortable being discharged home at this time. Patient is instructed to increase her fluid intake. Follow-up with her primary care doctor and roller printer. Return for any new or worsening symptoms. Patient agreeable to plan was discharged in stable condition Undiagnosed new problem with uncertain prognosis? @ -No Drug Therapy requiring intensive monitoring for toxicity (Heparin, Nitro, Insulin, Cardizem)? @ -No Were any procedures done? @ -No Diagnosis/symptom? @ -Near syncope, acute tachycardia, history of POTS Acute, or Chronic, or Acute on Chronic? @ -Acute Uncomplicated (without systemic symptoms) or Complicated (systemic symptoms)? @ -Default Side effects of treatment? @ -No Exacerbation, Progression, or Severe Exacerbation? @ -No Poses a threat to life or bodily function? How? (Chest pain, USA, SC, pneumonia, PE, COPD, DKA, ARF, appy, cholecystitis, CVA, Diverticulitis, Homicidal, Suicidal, threat to staff... and all critical care pts) @ -No - Lab Data Result diagrams: 06/06/23 18:26 06/06/23 18:26 Lab Results 06/06/23 06/06/23 06/06/23 Range/Units 18:26 18:26 18:26 WBC 17.0 H (3.8-10.6) k/uL RBC 4.99 (3.80-5.40) m/uL Hgb 14.2 (11.4-16.0) gm/dL Hct 43.6 (34.0-46.0) % MCV 87.4 (80.0-100.0) fL MCH 28.5 (25.0-35.0) pg MCHC 32.7 (31.0-37.0) g/dL RDW 13.4 (11.5-15.5) % Plt Count 237 (150-450) k/uL MPV 9.2 Neutrophils % 90 % Lymphocytes % 5 % Monocytes % 4 % Eosinophils % 1 % Basophils % 0 % Neutrophils # 15.3 H (1.3-7.7) k/uL Lymphocytes # 0.8 L (1.0-4.8) k/uL Monocytes # 0.7 (0-1.0) k/uL Eosinophils # 0.2 (0-0.7) k/uL Basophils # 0.0 (0-0.2) k/uL Sodium 139 (137-145) mmol/L Potassium 3.9 (3.5-5.1) mmol/L Chloride 105 (98-107) mmol/L Carbon Dioxide 25 (22-30) mmol/L Anion Gap 9 mmol/L BUN 14 (7-17) mg/dL Creatinine 0.70 (0.52-1.04) mg/dL Est GFR (CKD-EPI)AfAm >90 (>60 ml/min/1.73 sqM) Est GFR (CKD-EPI)NonAf >90 (>60 ml/min/1.73 sqM) Glucose 95 (74-99) mg/dL Calcium 9.4 (8.4-10.2) mg/dL Total Bilirubin 0.5 (0.2-1.3) mg/dL AST 20 (14-36) U/L ALT 21 (4-34) U/L Alkaline Phosphatase 80 (38-126) U/L Troponin I <0.012 (0.000-0.034) ng/mL Total Protein 7.5 (6.3-8.2) g/dL Albumin 4.7 (3.5-5.0) g/dL Influenza Type A (PCR) (Not Detectd) Influenza Type B (PCR) (Not Detectd) RSV (PCR) (Not Detectd) SARS-CoV-2 (PCR) (Not Detectd) Group A Strep (PCR) (Not Detectd) 06/06/23 06/06/23 Range/Units 18:42 18:42 WBC (3.8-10.6) k/uL RBC (3.80-5.40) m/uL Hgb (11.4-16.0) gm/dL Hct (34.0-46.0) % MCV (80.0-100.0) fL MCH (25.0-35.0) pg MCHC (31.0-37.0) g/dL RDW (11.5-15.5) % Plt Count (150-450) k/uL MPV Neutrophils % % Lymphocytes % % Monocytes % % Eosinophils % % Basophils % % Neutrophils # (1.3-7.7) k/uL Lymphocytes # (1.0-4.8) k/uL Monocytes # (0-1.0) k/uL Eosinophils # (0-0.7) k/uL Basophils # (0-0.2) k/uL Sodium (137-145) mmol/L Potassium (3.5-5.1) mmol/L Chloride (98-107) mmol/L Carbon Dioxide (22-30) mmol/L Anion Gap mmol/L BUN (7-17) mg/dL Creatinine (0.52-1.04) mg/dL Est GFR (CKD-EPI)AfAm (>60 ml/min/1.73 sqM) Est GFR (CKD-EPI)NonAf (>60 ml/min/1.73 sqM) Glucose (74-99) mg/dL Calcium (8.4-10.2) mg/dL Total Bilirubin (0.2-1.3) mg/dL AST (14-36) U/L ALT (4-34) U/L Alkaline Phosphatase (38-126) U/L Troponin I (0.000-0.034) ng/mL Total Protein (6.3-8.2) g/dL Albumin (3.5-5.0) g/dL Influenza Type A (PCR) Not Detected (Not Detectd) Influenza Type B (PCR) Not Detected (Not Detectd) RSV (PCR) Not Detected (Not Detectd) SARS-CoV-2 (PCR) Not Detected (Not Detectd) Group A Strep (PCR) NOT DETECTED (Not Detectd) Disposition Clinical Impression: Near syncope, Tachycardia, Pharyngitis Disposition: HOME SELF-CARE Condition: Stable Instructions (If sedation given, give patient instructions): Pharyngitis (ED) Additional Instructions: Please take the antibiotics as directed. Follow-up with your primary care doctor in regards to your symptoms and return for any new or worsening symptoms Prescriptions: Amoxicillin 500 mg PO BID #20 capsule methylPREDNISolone Dose Pack [Medrol Dose Pack] 4 mg PO DIRECTED #21 tab Is patient prescribed a controlled substance at d/c from ED?: No Referrals: Ely Sheridan MD [Primary Care Provider] - 1-2 days Time of Disposition: 21:17
[2023-06-06 19:22] VITALS: TEMP 98
[2023-06-06] MEDS: SODIUM CHLORIDE 0.9% 1,000 ML IV ONE (20:59)
[2023-06-06] MEDS: DEXAMETHASONE SOD PHOSPHATE 10 MG/ML 1 ML VIAL IVP STA (21:47)
[2023-06-06] MEDS: AMOXICILLIN 500 MG CAP PO STA (21:47)
[2023-06-06 22:35] VITALS: BP 123/88; PULSE 108; RESP 14
== END 2023-06-06 22:01 | disposition home or self-care (01) ==
LOC: EC 17:28
DX: J02.9 Acute pharyngitis, unspecified (principal); R55 Syncope and collapse; R00.0 Tachycardia, unspecified
CPT/HCPCS: 36415; 93005; 87651; 80053; 84484; 85025; 87636; 99284; 96374; 96375; 96361 ×3; J1100; J2405